=== PATIENT | female | born 1975 | race Caucasian/White ===

== ENCOUNTER → 2022-09-20 10:25 | Outpatient (BNVA) | payer BC, SELFPAY | PROVIDERS: Visit Provider Family Medicine | DX: I10 Essential (primary) hypertension (principal) | CPT/HCPCS: 80053; 80061; 83036; 84443; 85025; 86803; 87806 ==

== ENCOUNTER 2022-10-09 14:49 | Outpatient (CLI) | payer BC, MEDICAID, SELFPAY ==
--- NOTE | 2022-10-09 14:54 | CTR_ITS ---
PROCEDURE INFORMATION: Exam: CTA Abdominal Aorta and Bilateral Lower Extremities (Run-off) With Contrast Exam date and time: 10/09/2022 3:12 PM Age: 47 years old Clinical indication: Condition or disease; Peripheral vascular disease; Prior surgery; Surgery type: Big toe RT, tubal, heart stent; Patient HX: Pvd, non healing cat bite on big toe was amputated, still wound on medial mid foot. ; Additional info: Pvd, non healing diabetic foot ulcer, please draw bun and creatinine before cta TECHNIQUE: Imaging protocol: Computed tomographic angiography of the of the abdominal aorta, pelvis and bilateral lower extremities with contrast. 3D rendering (Not supervised by radiologist): MIP and/or 3D reconstructed images were created by the technologist. Radiation optimization: All CT scans at this facility use at least one of these dose optimization techniques: automated exposure control; mA and/or kV adjustment per patient size (includes targeted exams where dose is matched to clinical indication); or iterative reconstruction. Contrast material: OMNI 350; Contrast volume: 95 ml; Contrast route: INTRAVENOUS (IV); REPORTING DATA: Count of CT and Cardiac NM exams in prior 12 months: This patient has received 0 known CTs and 0 known cardiac nuclear medicine studies in the 12 months prior to the current study. COMPARISON: No relevant prior studies available. RADIATION DOSE METRICS: Total DLP (mGy-cm): 606.17 FINDINGS: Aorta: There is moderate atherosclerotic calcification of the abdominal aorta with mild stenosis of the mid to distal abdominal aorta but no aneurysm. Celiac trunk and mesenteric arteries: There is an accessory right gastric artery branch arising directly from the aorta superior to the celiac origin. Celiac artery and superior mesenteric arteries are widely patent. Renal arteries: There is a main renal artery on each side without stenosis. Each kidney also has an accessory renal artery supplying its lower pole without stenosis. Right iliac arteries: No occlusion or significant stenosis. Right femoral/popliteal arteries: No occlusion or significant stenosis. Right infrapopliteal arteries: On the right side there is three-vessel runoff visualized below the knee. The posterior tibial artery is patent to the foot and supplies foot via the plantar arcade. The right peroneal artery is patent to the level of the mid calf but not beyond. The right anterior tibial artery is small and terminates in the mid calf. The right dorsalis pedis artery is not visualized. Left iliac arteries: No occlusion or significant stenosis. Left femoral/popliteal arteries: No occlusion or significant stenosis. Left infrapopliteal arteries: The left tibial peroneal trunk is proximally occluded. Left anterior tibial artery is occluded in the mid calf. The left foot is supplied via collateral branches which reconstitutes the dorsalis pedis artery. The left peroneal artery is never filled on this examination. There is a thready left posterior tibial artery which is minimally opacified at various points in its length. Lungs: There is some subsegmental atelectasis at left lung baseThere is no focal abnormality within the liver. Liver: No mass. Gallbladder and bile ducts: Unremarkable. No calcified stones. No ductal dilation. Pancreas: The pancreas is normal. Spleen: The spleen is normal. Adrenal glands: The adrenal glands are normal. Kidneys and ureters: There are some areas of cortical scarring lower pole and lower mid right kidney. Tiny calcification mid left kidney may represent small nonobstructing stone . There is no evidence of hydronephrosis. There is no stone along the course of either ureter. Stomach and bowel: There is no evidence of intestinal perforation or obstruction. There is no evidence of colitis/diverticulitis. There is no evidence of intestinal obstruction. Appendix: A normal appendix is identified. Urinary bladder: Unremarkable. No mass. Reproductive: Uterus is enlarged and lobulated containing several fibroids. There are what appear to be 2 corpus luteum cysts in the left ovary measuring 16 17 mm. Intraperitoneal space: There is no evidence of free intraperitoneal fluid. Lymph nodes: There is no evidence of lymphadenopathy. Bones/joints: Bones of the left foot in the distal left tibia are osteoporotic. There has been transmetatarsal amputation of the left great toe. Soft tissues: Unremarkable. CT/CT angio abd aorta runof [id number] IMPRESSION: 1. Atherosclerotic disease as described above mainly distal with extremely poor runoff on the left , mainly via the left anterior tibial artery which is occluded at the level of the mid calf and non filling of the left peroneal and posterior tibial arteries. 2. Essentially Single-vessel runoff on the right via a patent posterior tibial artery.
[2022-10-09 15:24] LABS: Blood Urea Nitrogen 9 mg/dL (6-20); Glomerular Filtration Rate 107.6 mL/min (90-130)
[2022-10-09] MEDS: iohexol 350 mg/mL 500 mL Btl (per mL) IV (15:26)
== END 2022-10-09 14:50 | disposition home or self-care (01) ==
LOC: RAD 14:50
PROVIDERS: PCP Family Medicine; Visit Provider Thoracic Surgery (Cardiothoracic Vascular Surgery)
DX: E11.621 Type 2 diabetes mellitus with foot ulcer (principal); L97.529 Non-pressure chronic ulcer of other part of left foot with unspecified severity; E11.51 Type 2 diabetes mellitus with diabetic peripheral angiopathy without gangrene
CPT/HCPCS: 75635; 82565; 84520; Q9967

== ENCOUNTER 2022-11-22 21:30 | Emergency (ER) | payer BC, MEDICAID, SELFPAY ==
--- NOTE | 2022-11-22 21:32 | ECG_ITS ---
[facility] Test Date: 2022-11-22 Pat Name: Nayana Mera Department: Room: Gender: Female Vp Lab: : [id number] Requested By: Rosibel Mosley Order Number: [id number] Humera MD: Marques Conte M.D. Measurements Intervals [place] Rate: 110 P: 58 VA: 136 QRS: -16 QRSD: 100 T: -45 QT: 342 QTc: 463 Interpretive Statements SINUS TACHYCARDIA LOW QRS VOLTAGE IN PRECORDIAL LEADS [QRS DEFLECTION < 1.0 mV IN CHEST LEADS] INFERIOR MYOCARDIAL INFARCTION , OF INDETERMINATE AGE [40+ ms Q WAVE AND/OR ST/T ABNORMALITY IN II/aVF] No previous ECG available for comparison Electronically Signed On 11-23-2022 11:58:46 CDT by Marques Conte M.D. [email or web address]
--- NOTE | 2022-11-22 21:32 | XRR_ITS ---
PROCEDURE INFORMATION: Exam: XR Chest Exam date and time: 11/22/2022 9:42 PM Age: 47 years old Clinical indication: Pain; Chest pressure; Prior surgery; Surgery date: 6+ months; Surgery type: Stents; Additional info: Cp TECHNIQUE: Imaging protocol: Radiologic exam of the chest. Views: 1 view. COMPARISON: CT angio abd aorta runof [id number] 10/09/2022 3:12 PM FINDINGS: Lungs: There is some focal scarring or subsegmental atelectasis in the left mid lung. Visualized portions of the right lung are clear. Pleural spaces: Unremarkable. No pleural effusion. No pneumothorax. Heart/Mediastinum: Heart is within normal limits of size. Bones/joints: Unremarkable. XR/XR chest 1V portable [id number] IMPRESSION: Minimal subsegmental atelectasis in the left lung.
[2022-11-22 21:33] VITALS: BP 112/69; PULSE 107; RESP 17; TEMP 36.7; O2SAT 92; BMI 29.6
[2022-11-22 21:48] LABS: Basophils # 0.1 10^3/uL (0.0-0.1); Basophils % 0.7 %; Eosinophils # 0.2 10^3/uL (0.0-0.8); Eosinophils % 1.9 %; Hematocrit 47.6 % (37.0-47.0); Lymphocytes # 5.1 10^3/uL (0.8-4.8); Lymphocytes % 46.9 %; Mean Corpuscular HGB Conc 31.5 g/dL (30.0-36.0); Mean Corpuscular Hemoglobin 31.4 pg (28.0-34.0); Mean Corpuscular Volume 99.8 fl (81-99); Mean Platelet Volume 9.8 fL (7.4-10.4); Monocytes # 0.7 10^3/uL (0.2-0.9); Monocytes % 6.6 %; Neutrophils # 4.68 10^3/uL (1.8-7.7); Neutrophils % 43.5 %; Nucleated Red Blood Cells % 0 %; Platelet Count 360 10^3/cmm (130-400); Red Blood Count 4.77 10^6/uL (4.1-5.3); Red Cell Distribution Width 14.4 % (12.1-15.1); White Blood Count 10.8 10^3/uL (4.0-10.0)
[2022-11-22 22:04] LABS: SARS Covid-2 Antigen negative (Negative)
--- NOTE | 2022-11-22 22:05 | ED_ITS ---
HPI - Chest Pain General: Chief Complaint: Chest Pain Stated Complaint: cp Time Seen by Provider: 11/22/22 21:32 Source: patient and EMS Mode of arrival: EMS Limitations: no limitations History of Present Illness: 47-year-old female states been having upper respiratory like illness for the last 2 days states she has had some congestion she felt congested in her chest along with cough take-home COVID is negative states that she became concerned she had some chest pains with this as well. She denies any severe pain she does have a history of coronary disease denies any nausea or diaphoresis. Associated symptoms: Deny abdominal pain, dyspnea, fever(s), nausea or vomiting Review of Systems Const: Reports: body aches; Denies: fever(s) or chills Eyes: Denies: eye discomfort ENMT: Reports: nasal congestion; Denies: throat pain Card: Reports: chest pain Resp: Reports: non-productive cough; Denies: dyspnea GI: Denies: abdominal pain, nausea, vomiting or diarrhea : Denies: dysuria Musc: Denies: neck pain or back pain Skin/Breast: Denies: rash Neuro: Denies: headache(s) PFS ED PFSH: Social History Smoking and tobacco status: current every day smoker cigarettes Second hand smoke exposure: No Smoking risk assessment/counseling performed?: No Alcohol intake: never Desire information about alcohol rehabilitation?: No Counseling given: No Substance/Drug Use: never Desire information about substance/drug rehabilitation?: No Counseling given: No Adopted: No Caregiver/support person: No Lives independently: Yes Housing: House Female Reproductive History: Spontaneous abortions: No Physical Exam Const: COMMON NORMALS: no acute distress, patient oriented x3 and healthy appearing HENMT: COMMON NORMALS: normocephalic and atraumatic HEAD & SCALP: normo cephalic and atraumatic Eye: COMMON NORMALS: conjunctivae normal CONJUNCTIVA: Yes conjunctivae normal Neck/C-Spine: COMMON NORMALS: full ROM and supple Chest: COMMONS NORMALS: normal inspection of the chest and normal palpation of entire chest wall Resp: COMMON NORMALS: normal respiratory effort, No retractions, No use of accessory muscles and clear to auscultation bilaterally AUSCULTATION: clear to auscultation bilaterally Cardio: COMMON NORMALS: regular rhythm and No murmurs present (Cardio) RATE: tachycardic RHYTHM: regular rhythm GI: COMMON NORMALS: Normal to inspection, nondistended, normoactive bowel sounds present, Soft to palpation, non-tender and no masses PALPATION: Yes Soft to palpation Extremity: COMMON NORMALS: normal to inspection and full ROM Neuro: COMMON NORMALS: patient oriented x3, moves all extremities and no focal motor deficits Psych: COMMON NORMALS: mental status grossly normal, Normal thought process present and cooperative THOUGHT PROCESS: Normal thought process present Skin: COMMON NORMALS: no rashes or lesions noted and no wounds GENERAL SKIN EXAM: no rashes or lesions noted Course Vital Signs: Vital signs: Vital Signs Temperature 98.1 F 11/22/22 21:33 Pulse Rate 101 H 11/22/22 22:17 Respiratory Rate 17 11/22/22 22:17 Blood Pressure 108/78 11/22/22 22:17 Pulse Oximetry 96 11/22/22 22:17 Oxygen Delivery Me thod Room Air 11/22/22 21:33 MDM - Chest Pain Medical Decision Making Patient presents here with cough congestion she also had some chest pain for 2 days she has no signs of acute coronary syndrome her troponin here is 6 EKG is normal has possible slight pneumonia on her x-ray we will give her Decadron she is to use inhaler at home we will prescribe her doxycycline she is to follow-up with PCP and return if worsening she understands agrees to plan. Differential Diagnosis Unlikely acute massive pulmonary embolism, acute respiratory failure or acute myocardial infarction Medical Records I reviewed the patient's medical records. Lab Data I reviewed the patient's lab results. 11/22/22 21:39 11/22/22 22:03 Radiology Impressions Chest X-Ray 11/22/22 21:32 IMPRESSION: Minimal subsegmental atelectasis in the left lung. Laboratory Results WBC 10.8 10^3/uL (4.0-10.0) H 11/22/22 21:39 RBC 4.77 10^6/uL (4.1-5.3) 11/22/22 21:39 Hgb 15.0 g/dL (11.5-15.3) 11/22/22 21:39 Hct 47.6 % (37.0-47.0) H 11/22/22 21:39 MCV 99.8 fl (81-99) H 11/22/22 21:39 MCH 31.4 pg (28.0-34.0) 11/22/22 21:39 MCHC 31.5 g/dL (30.0-36.0) 11/22/22 21:39 RDW 14.4 % (12.1-15.1) 11/22/22 21:39 Plt Count 360 10^3/cmm (130-400) 11/22/22 21:39 MPV 9.8 fL (7.4-10.4) 11/22/22 21:39 Neut % (Auto) 43.5 % 11/22/22 21: Lymph % (Auto) 46.9 % 11/22/22 21: Scott % (Auto) 6.6 % 11/22/22 21: Eos % (Auto) 1.9 % 11/22/22 21: Baso % (Auto) 0.7 % 11/22/22 21: Neut # (Auto) 4.68 10^3/uL (1.8-7.7) 11/22/22 21:39 Lymph # (Auto) 5.1 10^3/uL (0.8-4.8) H 11/22/22 21:39 Scott # (Auto) 0.7 10^3/uL (0.2-0.9) 11/22/22 21:39 Eos # (Auto) 0.2 10^3/uL (0.0-0.8) 11/22/22 21:39 Baso # (Auto) 0.1 10^3/uL (0.0-0.1) 11/22/22 21:39 Nucleated RBC % (auto) 0 % 11/22/22 21: Nucleated RBCs # 0.0 /100WBC 11/22/22 21:39 Sodium 139 mmol/L (136-145) 11/22/22 22:03 Potassium 3.8 mmol/L (3.5-5.1) 11/22/22 22:03 Chloride 105 mmol/L (98-107) 11/22/22 22:03 Carbon Dioxide 22 mmol/L (22-29) 11/22/22 22:03 Anion Gap 15.8 (5-19) 11/22/22 22:03 BUN 7 mg/dL (6-20) 11/22/22 22:03 Creatinine 0.4 mg/dL (0.5-0.9) L 11/22/22 22:03 GFR Calculation 171.8 mL/min (90-130) H 11/22/22 22:03 Glucose 157 mg/dL (65-115) H 11/22/22 22:03 Calculated Osmolality 289 mOsm/kg (285-295) 11/22/22 22:03 Calcium 8.7 mg/dL (8.5-10.5) 11/22/22 22:03 Total Bilirubin 0.2 mg/dL (0.15-1.2) 11/22/22 22:03 AST 13 U/L (0-32) 11/22/22 22:03 ALT 15 U/L (0-33) 11/22/22 22:03 Alkaline Phosphatase 78 U/L (35-105) 11/22/22 22:03 Troponin T Baseline 7 ng/L (0-10) 11/22/22 22:03 Total Protein 6.6 g/dL (6.6-8.7) 11/22/22 22:03 Albumin 4.1 g/dL (3.5-5.2) 11/22/22 22:03 Globulin 2.5 g/dL (1.3-4.6) 11/22/22 22:03 SARS-CoV-2 Ag (Rapid) negative (Negative) 11/22/22 21:39 EKG Data EKG 1: I personally reviewed and interpreted this EKG as follows: EKG interpretation date: 11/22/22 EKG interpretation time: 21:35 Interpretation: sinus tach hr [address] or t wave abnormalities qrs 100 qtc 407 Discharge Plan Discharge Patient Disposition: Home Clinical Impression: Bronchitis Condition: Stable Prescriptions: New doxycycline hyclate 100 mg tablet 100 mg PO BID 7 Days Qty: 14 0RF No Action cetirizine 10 mg tablet 10 mg PO DAILY PRN metformin 500 mg tablet extended release 24hr 1,000 mg PO BID Rx Instructions: Take 2 tablets by mouth twice daily aspirin 81 mg tablet,delayed release (DR/EC) 81 mg PO DAILY clopidogrel 75 mg tablet 75 mg PO DAILY Qty: 30 11RF albuterol sulfate 90 mcg/actuation HFA aerosol inhaler 1 inh inhalation QID PRN (Reason: shortness of breath or wheezing) Qty: 8.5 5RF varenicline 0.5 mg (11)- 1 mg (42) tablets,dose pack See Rx Instructions PO PER PKG DIR Qty: 53 0RF Rx Instructions: PO PER PKG DIR (DME) compressor, for nebulizer Device See Rx Instructions .Route Qty: 1 0RF Rx Instructions: As directed gabapentin 300 mg capsule 300 mg PO DAILY Qty: 90 3RF atorvastatin 40 mg tablet 40 mg PO DAILY Qty: 90 3RF insulin glargine [Lantus Solostar U-100 Insulin] 100 unit/mL (3 mL) insulin pen 35 unit SUBCUT QAM Qty: 15 5RF lisinopril 2.5 mg tablet 2.5 mg PO DAILY Qty: 90 3RF metoprolol tartrate 25 mg tablet 25 mg PO BID Qty: 180 2RF hydrocodone-acetaminophen 5-325 mg tablet 1 tab PO BID PRN sodium chloride 0.9 % solution 1 irrig irrigation DAILY Qty: 500 1RF (DME) Dexcom G6 Sensor Device See Rx Instructions .Route Qty: 3 2RF Rx Instructions: As directed (DME) Dexcom G6 Transmitter Device See Rx Instructions .Route Qty: 3 2RF Rx Instructions: As directed (DME) Custom Molded Inserts with Toe Filler to the Left See Rx Instructions .Route .MEDSUPPLY Qty: 1 0RF Rx Instructions: As directed J P & O insulin aspart U-100 100 unit/mL (3 mL) insulin pen 5 unit SUBCUT TID Qty: 15 3RF Rx Instructions: 5 units with each meal plus Sliding Scale - Max daily dose 45 units. fluticasone propionate [Flonase Allergy Relief] 50 mcg/actuation spray,suspension 1 spray intranasal BID Qty: 16 5RF Rx Instructions: administer into each nostril (DME) diabetic supplies, miscellan. Misc See Rx Instructions .ROUTE .MEDSUPPLY Qty: 100 11RF Rx Instructions: Pen needles, tips, syringes, other supplies for insulin administration. 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
[2022-11-22 22:17] VITALS: BP 108/78; PULSE 101; RESP 17; O2SAT 96
[2022-11-22] MEDS: LORazepam 2 mg/mL INJ 1 mL 1 MG IVP (22:18)
[2022-11-22 22:29] LABS: Troponin(5th) Baseline 7 ng/L (0-10)
[2022-11-22 22:31] LABS: Alanine Aminotransferase 15 U/L (0-33); Albumin Level 4.1 g/dL (3.5-5.2); Alkaline Phosphatase 78 U/L (35-105); Anion Gap 15.8 (5-19); Aspartate Amino Transferase 13 U/L (0-32); Blood Urea Nitrogen 7 mg/dL (6-20); Calcium 8.7 mg/dL (8.5-10.5); Carbon Dioxide 22 mmol/L (22-29); Chloride 105 mmol/L (98-107); Globulin 2.5 g/dL (1.3-4.6); Glomerular Filtration Rate 171.8 mL/min (90-130); Glucose 157 mg/dL (65-115); Osmolality Calculated 289 mOsm/kg (285-295); Potassium 3.8 mmol/L (3.5-5.1); Sodium 139 mmol/L (136-145); Total Bilirubin 0.2 mg/dL (0.15-1.2); Total Protein 6.6 g/dL (6.6-8.7)
[2022-11-22 23:00] VITALS: BP 112/68; PULSE 105; RESP 20; O2SAT 96
[2022-11-22] MEDS: doxycycline 100 mg Tablet PO (23:00)
[2022-11-22] MEDS: dexamethasone 10 mg/mL INJ IVP (23:01)
== END 2022-11-22 23:10 | disposition home or self-care (01) ==
PROVIDERS: Emergency Provider Emergency Medicine; PCP Family Medicine
DX: J40 Bronchitis, not specified as acute or chronic (principal); Z79.84 Long term (current) use of oral hypoglycemic drugs; Z79.82 Long term (current) use of aspirin; Z79.02 Long term (current) use of antithrombotics/antiplatelets; Z79.4 Long term (current) use of insulin; Z20.822 Contact with and (suspected) exposure to COVID-19; F17.210 Nicotine dependence, cigarettes, uncomplicated
CPT/HCPCS: 36415; 71045; 80053; 84484; 85025; 87426; 93005; 96374; 96375; 99285; J1100; J2060

== ENCOUNTER 2022-11-26 08:44 | Outpatient (CLI) | payer BC, MEDICAID, SELFPAY ==
--- NOTE | 2022-11-26 | USCV_ITS ---
Nayana Mera Age: 47 Gender: F : 1975 Exam Date: 11/26/2022 09:27 Ordering Phys: Cecilia Key MD ([email or web address]) Technologist: Christopher Benavidez Exam Location: [facility] – [place] Indication: Recent MT BP: 94 / 62 HR: 74 Rhythm: Sinus Technical Quality: Adequate MEASUREMENTS (Male / Female) Normal Values 2D ECHO LVOT Diameter 2.2 cm LV Ejection Fraction MOD 2C 34.3 % LV Ejection Fraction 2C AL 32.3 % LA Diameter 3.1 cm LA Width 3.4 cm LA Height 4.4 cm RA Width 3.0 cm RA Height 3.8 cm Aorta at Sinotubular Diameter 1.8 cm IVC Diameter 1.8 cm M-MODE Aortic Annulus Diameter 2.6 cm LA Ao Ratio MM 1.1 MV E Point Septal Separation 1.3 cm DOPPLER AV Peak Velocity 111.0 cm/s LVOT Peak Velocity 61.0 cm/s AV Area Cont Eq vti 1.9 cm squared AV Area Cont Eq pk 2.0 cm squared MV Peak Velocity 87.0 cm/s MV Area PHT 3.5 cm squared Mitral E to A Ratio 1.0 MV E' Velocity 35.0 cm/s Mitral E to MV E' Ratio 7.0 Mitral E to LV E' Lateral Ratio 5.5 Mitral E to LV E' Septal Ratio 9.6 TR Peak Velocity 182.0 cm/s TR Peak Gradient 13.2 mmHg TR Mean Velocity 154.6 cm/s TR Mean Gradient 9.5 mmHg TR Velocity Time Integral 41.9 cm Right Atrial Pressure 3.0 mmHg Pulmonary Artery Systolic Pressu 16.2 mmHg PV Peak Velocity 98.0 cm/s RV Acceleration Time 0.1 s RV Ejection Time 0.2 s RV AcT/ET 0.5 FINDINGS Left Ventricle Moderate diffuse hypokinesia of the septum. Almost akinetic basal and mid inferior wall segment. LV ejection fraction around 34%.Grade I/IV diastolic dysfunction (abnormal relaxation filling pattern), normal to mildly elevated filling pressures. Right Ventricle The right ventricle is normal in size and function. Right Atrium The right atrium is normal in size. Left Atrium Mildly increased left atrial size. Mitral Valve Thickened mitral valve. Mild mitral valve regurgitation. Aortic Valve Thickened aortic valve. Tricuspid Valve Trace tricuspid valve regurgitation. Estimated pulmonary artery peak systolic pressure within normal limits Pulmonic Valve No gross abnormalities noted Pericardium Normal pericardium without effusion. Aorta Normal ascending aorta dimension. IVC Normal inferior vena cava. CONCLUSIONS Moderate diffuse hypokinesia of the septum. Almost akinetic basal and mid inferior wall segment. LV ejection fraction around 34%.Grade I/IV diastolic dysfunction (abnormal relaxation filling pattern), normal to mildly elevated filling pressures. Thickened mitral valve. Mild mitral valve regurgitation. Mildly increased left atrial size. Trace tricuspid valve regurgitation. Estimated pulmonary artery peak systolic pressure within normal limits Thickened aortic valve. There is no pericardial effusion. There are no intracardiac masses. No similar previous studies are available for comparison Dr Cecilia eKy MD [facility] (Electronically Signed) Final Date: 27 Nov 2022 08:58 S
== END 2022-11-26 08:45 | disposition home or self-care (01) ==
LOC: RAD 08:47
PROVIDERS: PCP Family Medicine; Visit Provider Internal Medicine Cardiovascular Disease
DX: I25.2 Old myocardial infarction (principal); I05.9 Rheumatic mitral valve disease, unspecified; I07.1 Rheumatic tricuspid insufficiency; I35.8 Other nonrheumatic aortic valve disorders
CPT/HCPCS: 93306

== ENCOUNTER 2023-01-14 02:29 | Emergency (ER) | payer BC, MEDICAID, SELFPAY ==
[2023-01-14 02:31] VITALS: BP 124/81; PULSE 93; RESP 18; TEMP 36.9; O2SAT 99; BMI 28.7
--- NOTE | 2023-01-14 02:35 | ED_ITS ---
HPI - Skin/Abscess/Foreign Bdy General: Chief complaint: Allergic Reaction Stated complaint: bite of some kind Time Seen by Provider: 01/14/23 02:30 History of Present Illness: Ms. Mera is a 47-year-old lady presenting to the emergency department for possible allergic reaction. She notes being at her baseline health. She did try a new perfume and had slight itching after that however that was earlier today. Without known provoking event she has developed left upper arm redness with itching. Moderate to severe in intensity. Denies signs of systemic illness/anaphylaxis. No other specific changes in health, exacerbating, or alleviating factors identified. Onset (ago): minute(s) Location: LUE Severity: moderate Quality: burning and pruritic Exacerbating factors: none Context: other Associated symptoms: Reports no associated symptoms Review of Systems General: Reports: 10 or more systems reviewed and unremarkable except in HPI and below PFSH ED PFSH: Medical History (Updated 01/14/23 @ 03:47 by Flex Bruno MD) COPD (chronic obstructive pulmonary disease) Diabetes, polyneuropathy Nicotine dependence, cigarettes, with unspecified nicotine-induced disorders PAD (peripheral artery disease) Systolic CHF with reduced left ventricular function, NYHA class 2 Social History Smoking and tobacco status: current every day smoker cigarettes Second hand smoke exposure: No Smoking risk assessment/counseling performed?: No Alcohol intake: never Desire information about alcohol rehabilitation?: No Counseling given: No Substance/Drug Use: never Desire information about substance/drug rehabilitation?: No Counseling given: No Adopted: No Caregiver/support person: No Lives independently: Yes Housing: House Female Reproductive History: Spontaneous abortions: No Physical Exam Const: COMMON NORMALS: alert GENERAL APPEARANCE: cooperative and well developed HENMT: COMMON NORMALS: normocephalic and atraumatic HEAD & SCALP: normocephalic and atraumatic THROAT: posterior oropharynx normal Eye: COMMON NORMALS: conjunctivae normal CONJUNCTIVA: Yes conjunctivae normal SCLERA: sclerae normal Neck/C-Spine: COMMON NORMALS: supple GENERAL: Yes trachea midline Resp: COMMON NORMALS: normal respiratory effort and clear to auscultation bilaterally EFFORT & INSPECTION: Yes able to speak in complete sentences AUSCULTATION: clear to auscultation bilaterally Cardio: COMMON NORMALS: regular rate and regular rhythm RATE: regular rate RHYTHM: regular rhythm GI: COMMON NORMALS: Soft to palpation PALPATION: Yes Soft to palpation and No Tenderness to palpation present (GI) Extremity: NARRATIVE EXTREMITY EXAM: Left upper extremity with erythema and pruritus without open wound on the distal anterior upper arm region with spread across the antecubital region. Distal CMS intact. GENERAL: Yes normal exam except as noted and No edema Neuro: COMMON NORMALS: moves all extremities SENSORIUM/ORIENTATION: Yes alert and No Orientation impaired Psych: COMMON NORMALS: mental status grossly normal and Normal thought process present THOUGHT PROCESS: Normal thought process present Course Vital Signs: Vital signs: Vital Signs Temperature 98.4 F 01/14/23 02:31 Pulse Rate 92 01/14/23 04:10 Respiratory Rate 16 01/14/23 04:10 Blood Pressure 99/61 01/14/23 04:10 Pulse Oximetry 97 01/14/23 04:10 MDM - Skin/Abscess/Foreign Bdy Medicial Decision Making 47-year-old lady presenting with arm pruritus and erythema concerning for localized allergic reaction. Denies insect bite and no clear puncture wound or insect bite is apparent on exam. Distal CMS intact. Patient is nontoxic. No evidence of anaphylaxis or rapidly progressing reaction. Patient treated with Benadryl, Pepcid, Decadron. IV fluids given. On reassessment patient has improvement. She does still have tenderness and warmth feels appears to be improved and has not developed additional symptoms. Given somewhat atypical distribution/unknown contact [id number] ultrasound was performed, soft tissue swelling without evidence of infectious etiology. No abscess. The results of ED evaluation were discussed with the patient including prescriptions and/or symptomatic cares (if applicable) including appropriate and responsible use, followup plan, and return precautions. The patient verbalized understanding and felt safe for discharge. Medical Records I reviewed the patient's medical records. Lab Data I reviewed the patient's lab results. Discharge Plan Discharge Patient Disposition: Home Clinical Impression: Allergic reaction Condition: Stable Prescriptions: New Pepcid 40 mg tablet 40 mg PO BID 5 Days Qty: 10 0RF prednisone 50 mg tablet 50 mg PO DAILY 5 Days Qty: 5 0RF Benadryl 25 mg capsule 25 mg PO Q6H PRN (Reason: allergic reaction) Qty: 30 0RF No Action cetirizine 10 mg tablet 10 mg PO DAILY PRN aspirin 81 mg tablet,delayed release (DR/EC) 81 mg PO DAILY clopidogrel 75 mg tablet 75 mg PO DAILY Qty: 30 11RF albuterol sulfate 90 mcg/actuation HFA aerosol inhaler 1 inh inhalation QID PRN (Reason: shortness of breath or wheezing) Qty: 8.5 5RF (DME) compressor, for nebulizer Device See Rx Instructions .Route Qty: 1 0RF Rx Instructions: As directed atorvastatin 40 mg tablet 40 mg PO DAILY Qty: 90 3RF insulin glargine [Lantus Solostar U-100 Insulin] 100 unit/mL (3 mL) insulin pen 35 unit SUBCUT QAM Qty: 15 5RF metoprolol tartrate 25 mg tablet 25 mg PO BID Qty: 180 2RF (DME) blood pressure test kit-medium Kit See Rx Instructions .Route Qty: 1 0RF Rx Instructions: As directed bupropion HCl [Wellbutrin SR] 150 mg tablet sustained-release 12 hr 150 mg PO DAILY Qty: 30 2RF fluconazole [Diflucan] 150 mg tablet 150 mg PO Q3D 9 Days Qty: 3 0RF insulin aspart U-100 100 unit/mL (3 mL) insulin pen 5 unit SUBCUT TID PRN Rx Instructions: 5 units with each meal plus Sliding Scale - Max daily dose 45 units. sacubitril-valsartan 49-51 mg tablet 1 tab PO BID 14 Days Qty: 28 0RF Rx Instructions: start on 6/1 PM (DME) Dexcom G6 Transmitter Device See Rx Instructions .Route Qty: 3 2RF Rx Instructions: As directed (DME) Custom Molded Inserts with Toe Filler to the Left See Rx Instructions .Route .MEDSUPPLY Qty: 1 0RF Rx Instructions: As directed J P & O fluticasone propionate [Flonase Allergy Relief] 50 mcg/actuation spray,suspension 1 spray intranasal BID Qty: 16 5RF Rx Instructions: administer into each nostril (DME) diabetic supplies, miscellan. Misc See Rx Instructions .ROUTE .MEDSUPPLY Qty: 100 11RF Rx Instructions: Pen needles, tips, syringes, other supplies for insulin administration. (DME) Dexcom G6 Sensor Device See Rx Instructions .ROUTE .COMPLEX Qty: 3 0RF Dose Instruction: USE DIRECTED Rx Instructions: USE DIRECTED Discharge Orders: Discharge ED (Routine); Ordered 01/14/23 Ordered By: Flex Bruno Referrals: To Yoon, [Primary Care Provider] - Discharge Diet: Usual diet Discharge Activity: Resume usual activity Patient Instructions: General Allergic Reaction (ED), Opioid Safety, Pain Management Activity Restrictions/Additional Instructions: Thank you for visiting the emergency department. You were seen and evaluated for likely allergic reaction. We are pleased that you had improvement in the emergency department. We will plan to continue to treat in the outpatient setting. I will prescribe steroids and Pepcid which you should take scheduled as prescribed, and you can use Benadryl as needed for additional symptom control. You may use [id number] medications such as acetaminophen and ibuprofen for pain however please do not exceed the daily recommended dosage as listed on the packaging and please keep in mind that many namebrand medications contain the same active ingredients. Please avoid these medications if previously instructed to do so by another physician due to other underlying medical condition. Please follow-up with a primary care provider. Return for worsening symptoms, any mouth or facial swelling, throat tightness, shortness of breath, or anything else that you are concerned about and feel needs emergency department evaluation. 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
[2023-01-14] MEDS: sodium chloride 0.9% 1,000 ML 999 ML IV (02:50)
[2023-01-14] MEDS: diphenhydrAMINE 50 mg/mL SDV 1mL IVP (02:51)
[2023-01-14] MEDS: dexamethasone 10 mg/mL INJ IVP (02:53)
[2023-01-14] MEDS: famotidine 20 mg/2 mL INJ 40 MG IVP (02:53)
[2023-01-14] MEDS: ketorolac 30 mg/mL INJ 15 MG IVP (04:04)
[2023-01-14] MEDS: acetaminophen 325 mg Tablet 650 MG PO (04:05)
[2023-01-14 04:10] VITALS: BP 99/61; PULSE 92; RESP 16; O2SAT 97
== END 2023-01-14 04:09 | disposition home or self-care (01) ==
PROVIDERS: Emergency Provider Emergency Medicine; PCP Family Medicine
DX: T78.40XA Allergy, unspecified, initial encounter (principal); X58.XXXA Exposure to other specified factors, initial encounter
CPT/HCPCS: 96361; 96374; 96375; 99284; J1100; J1200; J1885; J3490; J7030

== ENCOUNTER 2023-01-16 15:02 | Outpatient (CLI) | payer BC, MEDICAID, SELFPAY ==
[2023-01-16 15:55] LABS: Anion Gap 14.6 (5-19); Blood Urea Nitrogen 10 mg/dL (6-20); Carbon Dioxide 24 mmol/L (22-29); Chloride 101 mmol/L (98-107); Glomerular Filtration Rate 171.8 mL/min (90-130); Glucose 179 mg/dL (65-115); NT Pro B Type Natriuretic Pept 712 pg/mL (0-125); Osmolality Calculated 286 mOsm/kg (285-295); Potassium 3.6 mmol/L (3.5-5.1); Sodium 136 mmol/L (136-145)
== END 2023-01-16 15:03 | disposition home or self-care (01) ==
LOC: LAB 15:05
PROVIDERS: PCP Family Medicine; Visit Provider Nurse Practitioner Family
DX: I25.5 Ischemic cardiomyopathy (principal); I50.20 Unspecified systolic (congestive) heart failure; I73.9 Peripheral vascular disease, unspecified
CPT/HCPCS: 36415; 80048; 83880

== ENCOUNTER → 2023-02-07 15:49 | Outpatient (BNVA) | payer BC, MEDICAID, SELFPAY | PROVIDERS: PCP Family Medicine; Visit Provider Internal Medicine Cardiovascular Disease | DX: R06.02 Shortness of breath (principal) | CPT/HCPCS: 36415; 80048; 83880 ==

== ENCOUNTER 2023-02-19 14:13 | Outpatient (CLI) | payer BC, MEDICAID, SELFPAY ==
--- NOTE | 2023-02-19 14:30 | USCV_ITS ---
Nayana Mera Age: 47 Gender: F : 1975 Exam Date: 02/19/2023 14:43 Ordering Phys: Cecilia Key MD ([email or web address]) Technologist: Christopher Benavidez Exam Location: [facility] – [place] Indication: cardiomyopathy BP: 116 / 84 HR: 98 Rhythm: Sinus Technical Quality: Adequate MEASUREMENTS (Male / Female) Normal Values 2D ECHO LVOT Diameter 2.0 cm LV Ejection Fraction MOD 2C 30.2 % LV Ejection Fraction 2C AL 31.0 % LA Diameter 3.2 cm LA Width 3.2 cm LA Height 4.1 cm RA Width 2.6 cm RA Height 3.1 cm Aorta at Sinotubular Diameter 2.0 cm IVC Diameter 1.3 cm M-MODE Aortic Annulus Diameter 2.7 cm LA Ao Ratio MM 1.1 MV E Point Septal Separation 1.5 cm DOPPLER AV Peak Velocity 125.7 cm/s LVOT Peak Velocity 76.0 cm/s AV Area Cont Eq vti 1.6 cm squared AV Area Cont Eq pk 1.9 cm squared MV Peak Velocity 109.0 cm/s MV Area PHT 5.9 cm squared Mitral E to A Ratio 0.7 MV E' Velocity 35.0 cm/s Mitral E to MV E' Ratio 7.9 Mitral E to LV E' Lateral Ratio 5.9 Mitral E to LV E' Septal Ratio 12.0 TR Peak Velocity 199.3 cm/s TR Peak Gradient 15.9 mmHg TR Mean Velocity 160.6 cm/s TR Mean Gradient 10.6 mmHg TR Velocity Time Integral 44.8 cm Right Atrial Pressure 3.0 mmHg Pulmonary Artery Systolic Pressu 18.9 mmHg PV Peak Velocity 95.7 cm/s RV Acceleration Time 0.1 s RV Ejection Time 0.2 s RV AcT/ET 0.4 FINDINGS Left Ventricle Severe diffuse hypokinesis the inferior wall and the septum. Mild diffuse hypokinesia of the apex. Mildly dilated LV cavity. There LV ejection fraction is around 37% by MOD. an apical density possibly extracardiac.Grade I/IV diastolic dysfunction (abnormal relaxation filling pattern), normal to mildly elevated filling pressures. Right Ventricle Normal size and ejection fraction. Right Atrium The right atrium is normal in size. Left Atrium The left atrium is normal in size. Mitral Valve Minimally thickened mitral valve with trace of mitral regurgitation. Aortic Valve Minimally thickened Tricuspid Valve No gross abnormalities noted Pulmonic Valve No gross abnormalities noted Pericardium Normal pericardium without effusion. Aorta Normal ascending aorta dimension. IVC The inferior vena cava appears normal. CONCLUSIONS Study from 11/26/2022, ejection fraction of 34% Multiple wall motion of normalities with diminished ejection fraction 37%. Mildly dilated LV cavity. There is an apical density possibly extracardiac. Type I diastolic dysfunction. Minimally thickened mitral valve with trace of mitral regurgitation. Minimally thickened aortic valve There is no pericardial effusion. Consider echo contrast to rule out any apical thrombus Compared to the study from 11/26/2022, there is some improvement with LV ejection fraction Dr Cecilia Key MD [facility] (Electronically Signed) Final Date: 20 February 2023 07:53 S
== END 2023-02-19 14:14 | disposition home or self-care (01) ==
PROVIDERS: PCP Family Medicine; Visit Provider Internal Medicine Cardiovascular Disease
DX: I34.0 Nonrheumatic mitral (valve) insufficiency (principal); R06.09 Other forms of dyspnea
CPT/HCPCS: 93306

== ENCOUNTER 2023-02-20 10:11 | Outpatient (CLI) | payer BC, MEDICAID, SELFPAY ==
--- NOTE | 2023-02-20 | USCV_ITS ---
Nayana Mera Age: 47 Gender: F : 1975 Exam Date: 02/20/2023 10:28 Ordering Phys: Cecilia Key MD ([email or web address]) Technologist: Christopher Benavidez Exam Location: [facility] – [place] Indication: LV FUNCTION BP: 116 / 84 HR: 83 Rhythm: Sinus Technical Quality: Adequate MEASUREMENTS (Male / Female) Normal Values 2D ECHO LVOT Diameter 2.1 cm LV Ejection Fraction MOD 2C 33.7 % LV Ejection Fraction 2C AL 34.2 % LA Diameter 3.1 cm LA Width 3.0 cm LA Height 4.3 cm RA Width 3.1 cm RA Height 3.6 cm Aorta at Sinotubular Diameter 2.3 cm IVC Diameter 1.1 cm M-MODE Aortic Annulus Diameter 2.4 cm LA Ao Ratio MM 1.3 MV E Point Septal Separation 1.4 cm DOPPLER Right Atrial Pressure 3.0 mmHg FINDINGS Left Ventricle (Echo contrast - Optison was used to delineate the endocardium and to estimate the LV ejection fraction) diffuse hypokinesia of the left ventricle was noted. There was no filling defect in the apex multiple wall motion abnormalities. LV ejection fraction 36.1% Right Ventricle Right Atrium Left Atrium Mitral Valve Aortic Valve Tricuspid Valve Pulmonic Valve Pericardium Aorta IVC CONCLUSIONS 1. No evidence of LV apical thrombus. 2. Multiple wall motion abnormalities 3. LV ejection fraction with the contrast echo was 36.1% 4. Mildly dilated LV cavity Dr Cecilia Key MD [facility] (Electronically Signed) Final Date: 20 February 2023 16:56 S
[2023-02-20] MEDS: perflutren protein-a microsphr 0.22 mg/mL SDV 3 mL IV (11:14)
== END 2023-02-20 10:12 | disposition home or self-care (01) ==
LOC: RAD 10:12
PROVIDERS: PCP Family Medicine; Visit Provider Nurse Practitioner Family
DX: I51.7 Cardiomegaly (principal); R93.1 Abnormal findings on diagnostic imaging of heart and coronary circulation
CPT/HCPCS: 93308; C8924; Q9956

== ENCOUNTER → 2023-02-26 10:16 | Outpatient (BNVA) | payer BC, MEDICAID, SELFPAY | PROVIDERS: PCP Family Medicine; Visit Provider Family Medicine | DX: E11.9 Type 2 diabetes mellitus without complications (principal); Z79.4 Long term (current) use of insulin | CPT/HCPCS: 83036 ==

== ENCOUNTER 2023-03-07 23:10 | Emergency (ER) | payer BC, MEDICAID, SELFPAY ==
[2023-03-07 23:20] VITALS: BP 137/90; PULSE 106; RESP 18; TEMP 36.9; O2SAT 98; BMI 30.1
--- NOTE | 2023-03-07 23:25 | ED_ITS ---
HPI - Recheck/Abnormal Lab/Rx General: Chief Complaint: Recheck/Abnormal Lab/Rx Stated Complaint: high bp / bs Time Seen by Provider: 03/07/23 23:25 History of Present Illness: 47-year-old female comes in today for concerns of elevated blood pressure. Patient's home monitor noted a blood pressure of 240/80. Patient was concerned and came into the ER. Patient was also concerned about her blood glucose running in the 300s. Patient was wanting to know what she could do to help l ower her sugars because she is having a hard time managing it. Patient takes 35 units of basal insulin daily at 35 units. Patient then is to follow a sliding scale 3-4 times a day. Patient does admit that she does not use her sliding scale that often. Review of Systems General: Reports: 10 or more systems reviewed and unremarkable except in HPI and below Card: Reports: other (High blood pressure) Endo: Reports: other (High blood sugar) [facility] ED PFSH: Medical History COPD (chronic obstructive pulmonary disease) Diabetes, polyneuropathy Nicotine dependence, cigarettes, with unspecified nicotine-induced disorders PAD (peripheral artery disease) Systolic CHF with reduced left ventricular function, NYHA class 2 Social History (Updated 02/26/23 @ 09:37 by Mary Funes LPN) Smoking and tobacco status: current every day smoker cigarettes Packs smoked per day: 1 Second hand smoke exposure: No Smoking risk assessment/counseling performed?: No Alcohol intake: never Desire information about alcohol rehabilitation?: No Counseling given: No Substance/Drug Use: never Desire information about substance/drug rehabilitation?: No Counseling given: No Adopted: No Caregiver/support person: No Lives independently: Yes Housing: House Female Reproductive History: Spontaneous abortions: No Physical Exam Const: COMMON NORMALS: alert HENMT: COMMON NORMALS: normocephalic HEAD & SCALP: normocephalic Neck/C-Spine: COMMON NORMALS: full ROM Resp: COMMON NORMALS: normal respiratory effort and clear to auscultation bilaterally AUSCULTATION: clear to auscultation bilaterally Cardio: COMMON NORMALS: regular rate and regular rhythm RATE: regular rate RHYTHM: regular rhythm Extremity: COMMON NORMALS: normal to inspection and full ROM Neuro: SENSORIUM/ORIENTATION: Yes alert Skin: COMMON NORMALS: turgor normal GENERAL SKIN EXAM: turgor normal Course Vital Signs: Vital signs: Vital Signs Temperature 98.4 F 03/07/23 23:20 Pulse Rate 106 H 03/07/23 23:20 Respiratory Rate 18 03/07/23 23:20 Blood Pressure 137/90 03/07/23 23:20 Pulse Oximetry 98 03/07/23 23:20 MDM - Recheck/Abnormal Lab/Rx Medical Decision Making Patient came in due to abnormal blood pressure reading at home. She reported a blood pressure reading of 240/80. On exam patient's blood pressure was 130/90. Respirations were even lungs are clear to auscultation abdomen soft nontender. No edema is noted in the extremities. Patient was also concerned about her blood glucose which runs in the 3-4 100s at times and was wanting to know how she could get better results. Patient reports that she eats very little sugar and does not eat very much at all routinely. Patient also admits that she only uses her sliding scale insulin occasionally because she forgets. Patient does take her routine basal insulin approximately 35 units daily. Differential diagnosis includes uncontrolled diabetes mellitus, hypertension, hypertensive emergency. No signs of severe illness is noted. Reviewed exam with patient and recommended following sliding scale as directed by primary care this often is 3- 4 times a day dosing. Patient was also recommended to exercise and eat a healthy diet. Reassured patient's blood pressure reading was most likely a fault in her machine at home and recommended follow-up with primary care for further evaluation and treatment. No signs of severe illness was noted and patient was stable and discharged to home. Lab Data Laboratory Results POC Glucose 405 mg/dL (70-110) H 03/07/23 23:36 Discharge Plan Discharge Patient Disposition: Home Clinical Impression: Encounter for examination of blood pressure with abnormal findings, Essential hypertension Diabetes mellitus type 2, uncontrolled Qualifiers: Glycemic state: with hyperglycemia Qualified Code(s): E11.65 - Type 2 diabetes mellitus with hyperglycemia Condition: Stable Prescriptions: No Action cetirizine 10 mg tablet 10 mg PO DAILY PRN aspirin 81 mg tablet,delayed release (DR/EC) 81 mg PO DAILY clopidogrel 75 mg tablet 75 mg PO DAILY Qty: 30 11RF atorvastatin 40 mg tablet 40 mg PO DAILY Qty: 90 3RF insulin glargine [Lantus Solostar U-100 Insulin] 100 unit/mL (3 mL) insulin pen 35 unit SUBCUT QAM Qty: 15 5RF metoprolol tartrate 25 mg tablet 25 mg PO BID Qty: 180 2RF bupropion HCl [Wellbutrin SR] 150 mg tablet sustained-release 12 hr 150 mg PO DAILY Qty: 30 2RF insulin aspart U-100 100 unit/mL (3 mL) insulin pen 5 unit SUBCUT TID PRN Rx Instructions: 5 units with each meal plus Sliding Scale - Max daily dose 45 units. (DME) Dexcom G6 Transmitter Device See Rx Instructions .Route Qty: 3 2RF Rx Instructions: As directed (DME) Dexcom G6 Sensor Device See Rx Instructions .ROUTE .COMPLEX Qty: 3 0RF Dose Instruction: USE DIRECTED Rx Instructions: USE DIRECTED (DME) Dexcom G6 Piping Blocker Misc See Rx Instructions .Route Qty: 1 0RF Rx Instructions: As directed albuterol sulfate [Ventolin HFA] 90 mcg/actuation HFA aerosol inhaler 1 inh inhalation QID PRN (Reason: shortness of breath or wheezing) Qty: 8.5 5RF fluticasone propionate [Flonase Allergy Relief] 50 mcg/actuation spray,suspension 1 spray intranasal BID Qty: 16 5RF Rx Instructions: administer into each nostril sacubitril-valsartan 97-103 mg tablet 1 tab PO BID Qty: 180 3RF Benadryl 25 mg capsule 25 mg PO Q6H PRN (Reason: allergic reaction) Qty: 30 0RF Discharge Orders: Discharge ED (Routine); Ordered 03/07/23 Ordered By: Donis Tellez Referrals: To Yoon DO [Primary Care Provider] - Discharge Diet: Usual diet Discharge Activity: Increase activity as tolerated Patient Instructions: Diabetes and Nutrition (ED) Activity Restrictions/Additional Instructions: Continue with routine medications as directed. Use sliding scale insulin as needed for elevated blood sugar. Check blood sugar 3-4 times a day and follow sliding scale. Follow-up with primary care for further evaluation and treatment and possible adjustment of long-acting insulin. Return to ER for new concerns. Coding Level of Care Code ED St[employer] Machine for Tyron Sheffield
[2023-03-07 23:39] LABS: Glucose Point of Care 405 mg/dL (70-110)
[2023-03-07] MEDS: insulin lispro 100 unit/1 mL 18 UNIT SUBCUT (23:56)
[2023-03-08 00:20] VITALS: BP 121/80; RESP 16
== END 2023-03-08 00:21 | disposition home or self-care (01) ==
PROVIDERS: Emergency Provider Nurse Practitioner Family; PCP Family Medicine
DX: E11.65 Type 2 diabetes mellitus with hyperglycemia (principal); R03.0 Elevated blood-pressure reading, without diagnosis of hypertension; Z79.4 Long term (current) use of insulin
CPT/HCPCS: 36416; 82962; 96372; 99284; J1815

== ENCOUNTER → 2023-05-16 16:31 | Outpatient (BNVA) | payer BC, MEDICAID, SELFPAY | PROVIDERS: PCP Family Medicine; Visit Provider Internal Medicine Cardiovascular Disease | DX: R07.9 Chest pain, unspecified (principal) | CPT/HCPCS: 93005 ==

== ENCOUNTER → 2023-06-13 11:46 | Outpatient (BNVA) | payer BC, MEDICAID, SELFPAY | PROVIDERS: PCP Family Medicine; Visit Provider Nurse Practitioner Family | DX: R39.9 Unspecified symptoms and signs involving the genitourinary system (principal); R10.9 Unspecified abdominal pain | CPT/HCPCS: 81000; 81025; 87491; 87591 ==

== ENCOUNTER → 2023-06-18 14:27 | Outpatient (BNVA) | payer BC, MEDICAID, SELFPAY | PROVIDERS: PCP Family Medicine; Visit Provider Family Medicine | DX: R39.9 Unspecified symptoms and signs involving the genitourinary system (principal); R30.0 Dysuria; E11.9 Type 2 diabetes mellitus without complications | CPT/HCPCS: 80048; 81000; 83036 ==

== ENCOUNTER 2023-07-30 10:57 | Outpatient (CLI) | payer BC, MEDICAID, SELFPAY ==
--- NOTE | 2023-07-30 11:03 | MM_ITS ---
WS: [id number] DIAGNOSTIC BILATERAL DIGITAL BREAST TOMOSYNTHESIS MAMMOGRAPHY WITH CAD Bilateral breast ultrasound, limited HISTORY: Breast pain, bilateral pain. No palpable nodules. COMPARISON: 05/12/2019 TECHNIQUE: Bilateral craniocaudad, mediolateral oblique, and mediolateral views are submitted with to mosmarilyn and JODI. Bilateral spot compression views CC and MLO. Computer aided detection utilized. Breast composition: There are scattered areas of fibroglandular density. There are no masses or suspi cious findings within either breast. Slight asymmetry in the upper outer quadrant of the LEFT breast. There is a prior biopsy clip noted. By history benign pathology associated with the biopsy. Bilateral breast ultrasound, limited. Bilateral breast ultrasound is directed to the areas of pain as indicated by the patient. There are n o suspicious masses and no distortion within either breast at the area of pain. IMPRESSION: MM/[place] [id number] BI-RADS: 2-Benign FOLLOW UP: 1 Year Follow-up
== END 2023-07-30 10:58 | disposition home or self-care (01) ==
LOC: RAD 10:58
PROVIDERS: PCP Family Medicine; Visit Provider Family Medicine
DX: N64.4 Mastodynia (principal)
CPT/HCPCS: 76642; 77062; G0279

== ENCOUNTER 2023-10-14 12:06 | Outpatient (RCR) | payer BC, MEDICAID, SELFPAY | END 2023-11-12 23:59 | disposition home or self-care (01) | LOC: CR 12:06 | PROVIDERS: PCP Family Medicine; Referring Provider Internal Medicine; Visit Provider Internal Medicine | DX: Z95.5 Presence of coronary angioplasty implant and graft (principal) | CPT/HCPCS: 93798 ==

== ENCOUNTER → 2023-10-31 09:10 | Outpatient (BNVA) | payer BC, MEDICAID, SELFPAY | PROVIDERS: PCP Family Medicine; Visit Provider Family Medicine | DX: Z01.419 Encounter for gynecological examination (general) (routine) without abnormal findings (principal); R79.89 Other specified abnormal findings of blood chemistry; I25.5 Ischemic cardiomyopathy; E78.2 Mixed hyperlipidemia; E11.65 Type 2 diabetes mellitus with hyperglycemia; E55.9 Vitamin D deficiency, unspecified; F17.219 Nicotine dependence, cigarettes, with unspecified nicotine-induced disorders | CPT/HCPCS: 80053; 80061; 81000; 82043; 82306; 82607; 83036; 84439; 84443; 85025 ==

== ENCOUNTER → 2023-11-01 09:28 | Outpatient (BNVA) | payer BC, MEDICAID, SELFPAY | PROVIDERS: PCP Family Medicine; Visit Provider Family Medicine | DX: Z01.419 Encounter for gynecological examination (general) (routine) without abnormal findings (principal) | CPT/HCPCS: 87624 ==

== ENCOUNTER → 2024-02-10 12:43 | Outpatient (BNVA) | payer BC, MEDICAID, SELFPAY | PROVIDERS: PCP Family Medicine; Visit Provider Nurse Practitioner | DX: J02.9 Acute pharyngitis, unspecified (principal) | CPT/HCPCS: 87880 ==

== ENCOUNTER 2024-03-04 13:59 | Outpatient (CLI) | payer BC, MEDICAID, SELFPAY ==
[2024-03-04 14:17] VITALS: PULSE 91; RESP 18; O2SAT 98
[2024-03-04] MEDS: albuterol 2.5 mg/3 mL Neb INHALATION (14:17)
[2024-03-04 14:21] VITALS: PULSE 98
== END 2024-03-04 14:00 | disposition home or self-care (01) ==
PROVIDERS: PCP Family Medicine; Visit Provider Nurse Practitioner Family
DX: Z20.2 Contact with and (suspected) exposure to infections with a predominantly sexual mode of transmission (principal); R39.9 Unspecified symptoms and signs involving the genitourinary system; F17.219 Nicotine dependence, cigarettes, with unspecified nicotine-induced disorders; R94.2 Abnormal results of pulmonary function studies
CPT/HCPCS: 81000; 87086; 87491; 87591; 94060; 94726; 94729; J7613

== ENCOUNTER → 2024-04-12 13:00 | Outpatient (BNVA) | payer BC, MEDICAID, SELFPAY | PROVIDERS: PCP Family Medicine; Visit Provider Emergency Medicine | DX: R05.9 Cough, unspecified (principal) | CPT/HCPCS: 87400 ==

== ENCOUNTER 2024-05-10 17:58 | Emergency (ER) | payer BC, MEDICAID, SELFPAY ==
[2024-05-10 18:10] VITALS: PULSE 112; RESP 18; O2SAT 99; BMI 29.9
--- NOTE | 2024-05-10 18:16 | ED_ITS ---
Documented by User: Rosibel Mosley MD 05/10/24 19:51 HPI - Skin/Abscess/Foreign Bdy 2 General: Chief complaint: Skin/Abscess/Foreign Body Stated complaint: sore on Left leg sent UC Time Seen by Provider: 05/10/24 18:00 Source: patient Mode of arrival: ambulatory Limitations: no limitations History of Present Illness: 48-year-old female states she has had so me erythema to her left inner thigh after shaving over the last few days she was seen yesterday urgent care who prescribed her cream states it worsened and she had a blister forearm she has some pain at the site denies any drainage denies any fevers. Associated symptoms: Deny chills, fever(s), nausea or vomiting Related Data Home Medications Medication Instructions Recorded Confirmed aspirin 81 mg tablet,delayed 81 mg PO DAILY 09/20/22 05/10/24 release cetirizine 10 mg tablet 10 mg PO DAILY PRN 09/20/22 05/10/24 Previous Rx's Medication Instructions Recorded diphenhydramine HCl 25 mg capsule 25 mg PO Q6H PRN allergic reaction 01/14/23 (Benadryl) #30 caps sacubitril 97 mg-valsartan 103 mg 1 tab PO BID #180 tabs 01/17/23 tablet ipratropium 0.5 mg-albuterol 3 mg 3 ml inhalation BID #180 mL 04/24/23 (2.5 mg base)/3 mL nebulization soln varenicline 1 mg tablet 1 mg PO BID #60 tabs 10/31/23 atorvastatin 40 mg tablet See Rx Instructions .Route 01/13/24 .COMPLEX #90 tabs Lantus Solostar U-100 Insulin 100 See Rx Instructions .Route 01/28/24 unit/mL (3 mL) subcutaneous pen .COMPLEX #15 mL (insulin glargine) alcohol swabs 1 pad topical DIRECTED #200 ea 01/28/24 blood-glucose meter,continuous #1 ea 01/28/24 (Dexcom G7 [employer]ist) blood-glucose sensor (Dexcom G7 #1 ea 01/28/24 Sensor device) insulin aspart U-100 100 unit/mL 10 unit (0.1 mL) SUBCUT TID #15 mL 01/28/24 (3 mL) subcutaneous pen pen needle, diabetic 30 gauge x #100 ea 01/28/2411/27 (Pen Needle) clopidogrel 75 mg tablet 75 mg PO DAILY #30 tabs 02/06/24 blood-glucose meter (OneTouch #1 ea 02/26/24 Ultra2 Meter) metoprolol tartrate 25 mg tablet 37.5 mg (1.5 x 25 mg) PO BID 30 03/27/24 days #90 tabs albuterol sulfate 90 mcg/actuation 2 inh inhalation Q4H PRN shortness 04/12/24 aerosol inhaler of breath or wheezing #6.7 grams promethazine-DM 6.25 mg-15 mg/5 mL 10 ml PO Q6H PRN cough #473 mL 04/12/24 oral syrup hydrocodone 5 mg-acetaminophen 325 1 tab PO Q6H PRN pain 5 days #10 05/09/24 mg tablet tabs mupirocin 2 % topical ointment 1 applic topical TID #22 grams 05/09/24 sulfamethoxazole 800 1 tab PO BID 10 days #20 tabs 05/09/24 mg-trimethoprim 160 mg tablet (Bactrim DS) Allergies Allergy/AdvReac Type Severity Reaction Status Date / Time pseudoephedrine Allergy Mild Elevated Verified 05/10/24 17:50 [From Sudafed] Heartrate bee venom protein (honey bee) Allergy Unknown Verified 05/10/24 17:50 Chocolate Allergy Mild ALGY-Hives Uncoded 05/10/24 17:50 Review of Systems 2 Const: Denies: fever(s), chills, body aches or change in appetite ENMT: Denies: throat pain or dental pain Card: Denies: chest pain Resp: Denies: dyspnea GI: Denies: abdominal pain, nausea, vomiting or diarrhea Musc: Denies: neck pain or back pain Skin/Breast: Reports: erythema; Denies: rash Neuro: Denies: headache(s) PFSH ED 2 PFSH: Medical History Systolic CHF with reduced left ventricular function, NYHA class 2 PAD (peripheral artery disease) Nicotine dependence, cigarettes, with unspecified nicotine-induced disorders Diabetes, polyneuropathy COPD (chronic obstructive pulmonary disease) Social History Smoking and tobacco/nicotine status: current every day tobacco/nicotine user cigarettes Packs smoked per day: 1 Second hand smoke exposure: No Alcohol intake: never Substance/Drug Use: never Adopted: No Caregiver/support person: No Lives independently: Yes Housing: House Female Reproductive History: Spontaneous abortions: No Physical Exam 2 Const: COMMON NORMALS: no acute distress, patient oriented x3 and healthy appearing HENMT: COMMON NORMALS: normocephalic and atraumatic HEAD & SCALP: n ormocephalic and atraumatic Neck/C-Spine: COMMON NORMALS: full ROM and supple Chest: COMMONS NORMALS: normal inspection of the chest Resp: COMMON NORMALS: normal respiratory effort Cardio: COMMON NORMALS: regular rate, regular rhythm and No murmurs present (Cardio) RATE: regular rate RHYTHM: regular rhythm Extremity: COMMON NORMALS: full ROM Neuro: COMMON NORMALS: patient oriented x3, moves all extremities and no focal motor deficits Psych: COMMON NORMALS: mental status grossly normal, Normal thought process present and cooperative THOUGHT PROCESS: Normal thought process present Skin: NARRATIVE SKIN EXAM: Erythema noted to left inner thigh Course 2 Vital Signs: Vital signs: Vital Signs Temperature 98.6 F 05/10/24 18:37 Pulse Rate 93 05/10/24 20:03 Respiratory Rate 16 05/10/24 18:38 Blood Pressure 125/71 05/10/24 20:03 Pulse Oximetry 94 05/10/24 20:03 Oxygen Delivery Me thod Room Air 05/10/24 19:15 MDM - Skin/Abscess/Foreign Bdy Medicial Decision Making Patient presents for an abscess to left inner thigh with cellulitis blood work here is normal no signs of necrotizing fasciitis did incise and drain the abscess did give IV clindamycin she is to continue the Bactrim she is return if worsening she understands agrees to plan Medical Records I reviewed the patient's medical records. Lab Data I reviewed the patient's lab results. 05/10/24 18:38 Laboratory Results WBC 11.07 10^3/uL (3.29-11.43) 05/10/24 18:38 RBC 4.75 10^6/uL (3.85-5.65) 05/10/24 18:38 Hgb 15.40 g/dL (11.27-16.99) 05/10/24 18:38 Hct 46.7 % (36-47) 05/10/24 18:38 MCV 98.3 fl (85-98) H 05/10/24 18:38 MCH 32.4 pg (27-33) 05/10/24 18:38 MCHC 33.0 g/dL (30-55) 05/10/24 18:38 RDW 12.4 % (12.1-15.1) 05/10/24 18:38 Plt Count 334 10^3/cmm (157-399) 05/10/24 18:38 MPV 9.7 fL (7.4-10.4) 05/10/24 18:38 Neut % (Auto) 62.2 % 05/10/24 18:38 Lymph % (Auto) 28.4 % 05/10/24 18:38 [place] % (Auto) 6.8 % 05/10/24 18:38 Eos % (Auto) 1.6 % 05/10/24 18:38 Baso % (Auto) 0.5 % 05/10/24 18:38 Neut # (Auto) 6.89 10^3/uL (1.8-7.7) 05/10/24 18:38 Lymph # (Auto) 3.1 10^3/uL (0.8-4.8) 05/10/24 18:38 [place] # (Auto) 0.8 10^3/uL (0.2-0.9) 05/10/24 18:38 Eos # (Auto) 0.2 10^3/uL (0.0-0.8) 05/10/24 18:38 Baso # (Auto) 0.1 10^3/uL (0.0-0.1) 05/10/24 18:38 Nucleated RBC % (auto) 0 % 05/10/24 18:38 Nucleated RBCs # 0.0 /100WBC 05/10/24 18:38 ESR 16 mm/hr (0-15) H 05/10/24 18:38 C-Reactive Protein 43.5 mg/L (0.0-4.9) H 05/10/24 18:38 No radiology studies performed this visit Discharge Plan Discharge Patient Disposition: Home Clinical Impression: Abscess of skin or subcutaneous tissue, Cellulitis Condition: Stable Prescriptions: No Action cetirizine 10 mg tablet 10 mg PO DAILY PRN aspirin 81 mg tablet,delayed release (DR/EC) 81 mg PO DAILY ipratropium-albuterol 0.5 mg-3 mg(2.5 mg base)/3 mL solution for nebulization 3 ml inhalation BID Qty: 180 1RF varenicline 1 mg tablet 1 mg PO BID Qty: 60 2RF (DME) Dexcom G7 Sensor Device See Rx Instructions .Route Qty: 1 5RF Rx Instructions: As directed (DME) Dexcom G7 [employer] Misc See Rx Instructions .Route Qty: 1 0RF Rx Instructions: As directed insulin aspart U-100 100 unit/mL (3 mL) insulin pen 10 unit SUBCUT TID Qty: 15 5RF Rx Instructions: 5 units with each meal plus Sliding Scale - Max daily dose 45 units. insulin glargine [Lantus Solostar U-100 Insulin] 100 unit/mL (3 mL) insulin pen See Rx Instructions .ROUTE .COMPLEX Qty: 15 2RF Dose Instruction: INJECT 35 UNITS SUBCUTANEOUSLY IN THE MORNING Rx Instructions: INJECT 35 UNITS SUBCUTANEOUSLY IN THE MORNING alcohol swabs Pads, Medicated 1 pad topical DIRECTED Qty: 200 2RF Rx Instructions: Use as directed to clean skin prior to finger stick or medication injection (DME) pen needle, diabetic [Pen Needle] 30 gauge x 5/16 needle See Rx Instructions .MEDSUPPLY Qty: 100 2RF Rx Instructions: Use as directed for insulin administration promethazine-DM 6.25-15 mg/5 mL syrup 10 ml PO Q6H PRN (Reason: cough) Qty: 473 0RF albuterol sulfate 90 mcg/actuation HFA aerosol inhaler 2 inh inhalation Q4H PRN (Reason: shortness of breath or wheezing) Qty: 6.7 0RF hydrocodone-acetaminophen 5-325 mg tablet 1 tab PO Q6H PRN (Reason: pain) 5 Days Qty: 10 0RF sulfamethoxazole-trimethoprim [Bactrim DS] 800-160 mg tablet 1 tab PO BID 10 Days Qty: 20 0RF mupirocin 2 % ointment 1 applic topical TID Qty: 22 0RF sacubitril-valsartan 97-103 mg tablet 1 tab PO BID Qty: 180 3RF atorvastatin 40 mg tablet See Rx Instructions .ROUTE .COMPLEX Qty: 90 0RF Dose Instruction: Take 1 tablet by mouth once daily Rx Instructions: Take 1 tablet by mouth once daily clopidogrel 75 mg tablet 75 mg PO DAILY Qty: 30 2RF (DME) blood-glucose meter [OneTouch Ultra2 Meter] Misc See Rx Instructions .ROUTE .COMPLEX Qty: 1 0RF Dose Instruction: USE TO CHECK BLOOD SUGAR LEVELS 4 TIMES A DAY Rx Instructions: USE TO CHECK BLOOD SUGAR LEVELS 4 TIMES A DAY metoprolol tartrate 25 mg tablet 37.5 mg PO BID 30 Days Qty: 90 3RF Benadryl 25 mg capsule 25 mg PO Q6H PRN (Reason: allergic reaction) Qty: 30 0RF Discharge Orders: Discharge ED (Routine); Ordered 05/10/24 Ordered By: Rosibel Mosley Discharge Diet: Advance as tolerated Discharge Activity: Use walker/crutches as instructed Patient Instructions: Cellulitis (ED), Abscess (ED) Coding Level of Care Code ED Plan Nurse for Chg Fwd Documented by User: GUERLINE Yeung 05/10/24 20:43 HPI - Skin/Abscess/Foreign Bdy 2 General: Chief complaint: Skin/Abscess/Foreign Body Stated complaint: sore on Left leg sent UC Time Seen by Provider: 05/10/24 18:00 Related Data Home Medications Medication Instructions Recorded Confirmed aspirin 81 mg tablet,delayed 81 mg PO DAILY 09/20/22 05/10/24 release cetirizine 10 mg tablet 10 mg PO DAILY PRN 09/20/22 05/10/24 Previous Rx's Medication Instructions Recorded diphenhydramine HCl 25 mg capsule 25 mg PO Q6H PRN allergic reaction 01/14/23 (Benadryl) #30 caps sacubitril 97 mg-valsartan 103 mg 1 tab PO BID #180 tabs 01/17/23 tablet ipratropium 0.5 mg-albuterol 3 mg 3 ml inhalation BID #180 mL 04/24/23 (2.5 mg base)/3 mL nebulization soln varenicline 1 mg tablet 1 mg PO BID #60 tabs 10/31/23 atorvastatin 40 mg tablet See Rx Instructions .Route 01/13/24 .COMPLEX #90 tabs Lantus Solostar U-100 Insulin 100 See Rx Instructions .Route 01/28/24 unit/mL (3 mL) subcutaneous pen .COMPLEX #15 mL (insulin glargine) alcohol swabs 1 pad topical DIRECTED #200 ea 01/28/24 blood-glucose meter,continuous #1 ea 01/28/24 (Dexcom G7 [employer]ist) blood-glucose sensor (Dexcom G7 #1 ea 01/28/24 Sensor device) insulin aspart U-100 100 unit/mL 10 unit (0.1 mL) SUBCUT TID #15 mL 01/28/24 (3 mL) subcutaneous pen pen needle, diabetic 30 gauge x #100 ea 01/28/2411/27 (Pen Needle) clopidogrel 75 mg tablet 75 mg PO DAILY #30 tabs 02/06/24 blood-glucose meter (OneTouch #1 ea 02/26/24 Ultra2 Meter) metoprolol tartrate 25 mg tablet 37.5 mg (1.5 x 25 mg) PO BID 30 03/27/24 days #90 tabs albuterol sulfate 90 mcg/actuation 2 inh inhalation Q4H PRN shortness 04/12/24 aerosol inhaler of breath or wheezing #6.7 grams promethazine-DM 6.25 mg-15 mg/5 mL 10 ml PO Q6H PRN cough #473 mL 04/12/24 oral syrup hydrocodone 5 mg-acetaminophen 325 1 tab PO Q6H PRN pain 5 days #10 05/09/24 mg tablet tabs mupirocin 2 % topical ointment 1 applic topical TID #22 grams 05/09/24 sulfamethoxazole 800 1 tab PO BID 10 days #20 tabs 05/09/24 mg-trimethoprim 160 mg tablet (Bactrim DS) Allergies Allergy/AdvReac Type Severity Reaction Status Date / Time pseudoephedrine Allergy Mild Elevated Verified 05/10/24 17:50 [From Sudafed] Heartrate bee venom protein (honey bee) Allergy Unknown Verified 05/10/24 17:50 Chocolate Allergy Mild ALGY-Hives Uncoded 05/10/24 17:50 PFSH ED 2 PFSH: Medical History Systolic CHF with reduced left ventricular function, NYHA class 2 PAD (peripheral artery disease) Nicotine dependence, cigarettes, with unspecified nicotine-induced disorders Diabetes, polyneuropathy COPD (chronic obstructive pulmonary disease) Social History Smoking and tobacco/nicotine status: current every day tobacco/nicotine user cigarettes Packs smoked per day: 1 Second hand smoke exposure: No Alcohol intake: never Substance/Drug Use: never Adopted: No Caregiver/support person: No Lives independently: Yes Housing: House Procedures Abscess I/D Site: lower extremity Side (if applicable): left Sedation/analgesia: none Technique: incised with #11 blade Amount of fluid expressed (mL): 3 Irrigation: Yes Packing used?: none Complications: other (Bullous lesion lanced and skin removed, seropurulent fluid expressed.) Course 2 Vital Signs: Vital signs: Vital Signs Temperature 98.6 F 05/10/24 18:37 Pulse Rate 93 05/10/24 20:03 Respiratory Rate 16 05/10/24 18:38 Blood Pressure 125/71 05/10/24 20:03 Pulse Oximetry 94 05/10/24 20:03 Oxygen Delivery Me thod Room Air 05/10/24 19:15 MDM - Skin/Abscess/Foreign Bdy Lab Data 05/10/24 18:38 Laboratory Results WBC 11.07 10^3/uL (3.29-11.43) 05/10/24 18:38 RBC 4.75 10^6/uL (3.85-5.65) 05/10/24 18:38 Hgb 15.40 g/dL (11.27-16.99) 05/10/24 18:38 Hct 46.7 % (36-47) 05/10/24 18:38 MCV 98.3 fl (85-98) H 05/10/24 18:38 MCH 32.4 pg (27-33) 05/10/24 18:38 MCHC 33.0 g/dL (30-55) 05/10/24 18:38 RDW 12.4 % (12.1-15.1) 05/10/24 18:38 Plt Count 334 10^3/cmm (157-399) 05/10/24 18:38 MPV 9.7 fL (7.4-10.4) 05/10/24 18:38 Neut % (Auto) 62.2 % 05/10/24 18:38 Lymph % (Auto) 28.4 % 05/10/24 18:38 [place] % (Auto) 6.8 % 05/10/24 18:38 Eos % (Auto) 1.6 % 05/10/24 18:38 Baso % (Auto) 0.5 % 05/10/24 18:38 Neut # (Auto) 6.89 10^3/uL (1.8-7.7) 05/10/24 18:38 Lymph # (Auto) 3.1 10^3/uL (0.8-4.8) 05/10/24 18:38 [place] # (Auto) 0.8 10^3/uL (0.2-0.9) 05/10/24 18:38 Eos # (Auto) 0.2 10^3/uL (0.0-0.8) 05/10/24 18:38 Baso # (Auto) 0.1 10^3/uL (0.0-0.1) 05/10/24 18:38 Nucleated RBC % (auto) 0 % 05/10/24 18:38 Nucleated RBCs # 0.0 /100WBC 05/10/24 18:38 ESR 16 mm/hr (0-15) H 05/10/24 18:38 C-Reactive Protein 43.5 mg/L (0.0-4.9) H 05/10/24 18:38 Discharge Plan Discharge Patient Disposition: Home Clinical Impression: Abscess of skin or subcutaneous tissue, Cellulitis Condition: Stable Prescriptions: No Action cetirizine 10 mg tablet 10 mg PO DAILY PRN aspirin 81 mg tablet,delayed release (DR/EC) 81 mg PO DAILY ipratropium-albuterol 0.5 mg-3 mg(2.5 mg base)/3 mL solution for nebulization 3 ml inhalation BID Qty: 180 1RF varenicline 1 mg tablet 1 mg PO BID Qty: 60 2RF (DME) Dexcom G7 Sensor Device See Rx Instructions .Route Qty: 1 5RF Rx Instructions: As directed (DME) Dexcom G7 [employer] Misc See Rx Instructions .Route Qty: 1 0RF Rx Instructions: As directed insulin aspart U-100 100 unit/mL (3 mL) insulin pen 10 unit SUBCUT TID Qty: 15 5RF Rx Instructions: 5 units with each meal plus Sliding Scale - Max daily dose 45 units. insulin glargine [Lantus Solostar U-100 Insulin] 100 unit/mL (3 mL) insulin pen See Rx Instructions .ROUTE .COMPLEX Qty: 15 2RF Dose Instruction: INJECT 35 UNITS SUBCUTANEOUSLY IN THE MORNING Rx Instructions: INJECT 35 UNITS SUBCUTANEOUSLY IN THE MORNING alcohol swabs Pads, Medicated 1 pad topical DIRECTED Qty: 200 2RF Rx Instructions: Use as directed to clean skin prior to finger stick or medication injection (DME) pen needle, diabetic [Pen Needle] 30 gauge x 5/16 needle See Rx Instructions .MEDSUPPLY Qty: 100 2RF Rx Instructions: Use as directed for insulin administration promethazine-DM 6.25-15 mg/5 mL syrup 10 ml PO Q6H PRN (Reason: cough) Qty: 473 0RF albuterol sulfate 90 mcg/actuation HFA aerosol inhaler 2 inh inhalation Q4H PRN (Reason: shortness of breath or wheezing) Qty: 6.7 0RF hydrocodone-acetaminophen 5-325 mg tablet 1 tab PO Q6H PRN (Reason: pain) 5 Days Qty: 10 0RF sulfamethoxazole-trimethoprim [Bactrim DS] 800-160 mg tablet 1 tab PO BID 10 Days Qty: 20 0RF mupirocin 2 % ointment 1 applic topical TID Qty: 22 0RF sacubitril-valsartan 97-103 mg tablet 1 tab PO BID Qty: 180 3RF atorvastatin 40 mg tablet See Rx Instructions .ROUTE .COMPLEX Qty: 90 0RF Dose Instruction: Take 1 tablet by mouth once daily Rx Instructions: Take 1 tablet by mouth once daily clopidogrel 75 mg tablet 75 mg PO DAILY Qty: 30 2RF (DME) blood-glucose meter [OneTouch Ultra2 Meter] [facility] [place] Rx Instructions .ROUTE .COMPLEX Qty: 1 0RF Dose Instruction: USE TO CHECK BLOOD SUGAR LEVELS 4 TIMES A DAY Rx Instructions: USE TO CHECK BLOOD SUGAR LEVELS 4 TIMES A DAY metoprolol tartrate 25 mg tablet 37.5 mg PO BID 30 Days Qty: 90 3RF Benadryl 25 mg capsule 25 mg PO Q6H PRN (Reason: allergic reaction) Qty: 30 0RF Discharge Orders: Discharge ED (Routine); Ordered 05/10/24 Ordered By: Rosibel Mosley Discharge Diet: Advance as tolerated Discharge Activity: Use walker/crutches as instructed Patient Instructions: Cellulitis (ED), Abscess (ED) Coding Level of Care Code ED Plan Nurse for Tyron Sheffield
[2024-05-10] MEDS: ondansetron 2 mg/ML SDV 2 mL 4 MG IVP (18:36)
[2024-05-10 18:37] VITALS: BP 149/87; TEMP 37
[2024-05-10 18:38] VITALS: RESP 16; O2SAT 96
[2024-05-10] MEDS: morphine 4 mg/mL SDV 1 mL IVP (18:38)
[2024-05-10] MEDS: clindamycin 900 MG/50 ML PREMIX 100 MG IV (18:55)
[2024-05-10 18:59] LABS: Basophils # 0.1 10^3/uL (0.0-0.1); Basophils % 0.5 %; Eosinophils # 0.2 10^3/uL (0.0-0.8); Eosinophils % 1.6 %; Hematocrit 46.7 % (36-47); Lymphocytes # 3.1 10^3/uL (0.8-4.8); Lymphocytes % 28.4 %; Mean Corpuscular Hemoglobin 32.4 pg (27-33); Mean Corpuscular Volume 98.3 fl (85-98); Mean Platelet Volume 9.7 fL (7.4-10.4); Monocytes # 0.8 10^3/uL (0.2-0.9); Monocytes % 6.8 %; Neutrophils # 6.89 10^3/uL (1.8-7.7); Neutrophils % 62.2 %; Nucleated Red Blood Cells % 0 %; Platelet Count 334 10^3/cmm (157-399); Red Blood Count 4.75 10^6/uL (3.85-5.65); Red Cell Distribution Width 12.4 % (12.1-15.1); White Blood Count 11.07 10^3/uL (3.29-11.43)
[2024-05-10 19:15] VITALS: BP 125/71; PULSE 93; O2SAT 94
[2024-05-10 19:15] LABS: C Reactive Protein 43.5 mg/L (0.0-4.9)
[2024-05-10 19:19] LABS: Erythrocyte Sedimentation Rate 16 mm/hr (0-15)
[2024-05-10 20:03] VITALS: BP 125/71; PULSE 93; O2SAT 94
== END 2024-05-10 20:05 | disposition home or self-care (01) ==
PROVIDERS: Emergency Provider Emergency Medicine
DX: L03.116 Cellulitis of left lower limb (principal); L02.416 Cutaneous abscess of left lower limb
CPT/HCPCS: 10060; 36415; 85025; 85651; 86140; 87070; 87075; 87205; 96365; 96375; 99284; J2270; J2405; J3490

== ENCOUNTER 2024-05-11 20:00 | Outpatient (CLI) | payer BC, MEDICAID, SELFPAY | END 2024-05-11 20:01 | disposition home or self-care (01) | LOC: SLEEP 05-12 | PROVIDERS: Visit Provider Nurse Practitioner Family | DX: G47.33 Obstructive sleep apnea (adult) (pediatric) (principal); I25.10 Atherosclerotic heart disease of native coronary artery without angina pectoris; Z95.5 Presence of coronary angioplasty implant and graft; I10 Essential (primary) hypertension; I50.20 Unspecified systolic (congestive) heart failure; R06.83 Snoring | CPT/HCPCS: 95810 ==

== ENCOUNTER → 2024-06-03 12:52 | Outpatient (BNVA) | payer BC, MEDICAID, SELFPAY | PROVIDERS: PCP Family Medicine; Visit Provider Family Medicine | DX: E11.9 Type 2 diabetes mellitus without complications (principal); Z79.4 Long term (current) use of insulin | CPT/HCPCS: 80053; 80061; 83036; 84439; 84443; 85025 ==

== ENCOUNTER → 2024-08-06 15:35 | Outpatient (BNVA) | payer BC, MEDICAID, SELFPAY | PROVIDERS: PCP Family Medicine; Visit Provider Nurse Practitioner Family | DX: R52 Pain, unspecified (principal) | CPT/HCPCS: 87400; 87426 ==

== ENCOUNTER 2024-09-04 07:53 | Outpatient (CLI) | payer BC, MEDICAID, SELFPAY ==
[2024-09-04 09:11] LABS: Alanine Aminotransferase 14 U/L (0-33); Albumin Level 3.8 g/dL (3.5-5.2); Alkaline Phosphatase 70 U/L (35-105); Anion Gap 17.1 (5-19); Aspartate Amino Transferase 10 U/L (0-32); Blood Urea Nitrogen 10 mg/dL (6-20); Calcium 8.9 mg/dL (8.5-10.5); Carbon Dioxide 21 mmol/L (22-29); Chloride 97 mmol/L (98-107); Chol HDL Ratio 2.86 mg/dL (0.0-4.40); Cholesterol 123 mg/dL (0-200); Globulin 2.7 g/dL (1.3-4.6); Glomerular Filtration Rate 170.4 mL/min (90-130); Glucose 295 mg/dL (65-115); HDL Cholesterol 43 mg/dL (60-100); LDL Cholesterol Calculated 54 mg/dL (50-129); LDL HDL Ratio 1.26 RATIO (0.00-3.22); Osmolality Calculated 282 mOsm/kg (285-295); Potassium 4.1 mmol/L (3.5-5.1); Sodium 131 mmol/L (136-145); Total Bilirubin 0.6 mg/dL (0.15-1.2); Total Protein 6.5 g/dL (6.6-8.7); Triglycerides 130 mg/dL (0-150)
[2024-09-04 09:14] LABS: Estmated Average Glucose 278; Hemoglobin A1C 11.3 % (4.0-6.0)
[2024-09-04 09:19] LABS: Creatinine Urine, Random 52 mg/dL (28-217); Microalbumin Random Urine 7 ug/dL (0-20)
[2024-09-04 09:22] LABS: Microalbum Creatinine Ratio Ur 135 mg/dL (0-20)
[2024-09-05 09:45] LABS: C-Peptide 2.18 ng/mL (0.80-3.85)
== END 2024-09-04 07:54 | disposition home or self-care (01) ==
LOC: LAB 07:54
PROVIDERS: PCP Family Medicine; Visit Provider Internal Medicine
DX: E11.9 Type 2 diabetes mellitus without complications (principal); Z79.4 Long term (current) use of insulin
CPT/HCPCS: 36415; 80053; 80061; 82044; 83036; 84681; 86337; 86341

== ENCOUNTER 2024-09-08 20:00 | Outpatient (CLI) | payer BC, MEDICAID, SELFPAY | END 2024-09-08 20:01 | disposition home or self-care (01) | LOC: SLEEP 22:40 | PROVIDERS: PCP Family Medicine; Visit Provider Family Medicine | DX: G47.33 Obstructive sleep apnea (adult) (pediatric) (principal) | CPT/HCPCS: 95811 ==

== ENCOUNTER → 2024-10-01 14:50 | Outpatient (BNVA) | payer BC, MEDICAID, SELFPAY | PROVIDERS: PCP Family Medicine | DX: R39.9 Unspecified symptoms and signs involving the genitourinary system (principal) | CPT/HCPCS: 81000 ==

== ENCOUNTER 2024-11-16 08:53 | Outpatient (CLI) | payer BC, MEDICAID, SELFPAY ==
--- NOTE | 2024-11-16 09:15 | USCV_ITS ---
Nayana Mera Age: 49 Gender: F : 1975 Exam Date: 11/16/2024 09:17 Ordering Phys: Cecilia Key MD ([email or web address]) Technologist: Exam Location: [place] Indication: hx of cad BP: 120 / 70 HR: 80 Rhythm: Sinus Technical Quality: Fair MEASUREMENTS (Male / Female) Normal Values 2D ECHO LV Diastolic Diameter PLAX 4.6 cm 4.2 - 5.9 / 3.9 - 5.3 cm IVS Diastolic Thickness 1.3 cm 0.6 - 1.0 / 0.6 - 0.9 cm IVS Systolic Thickness 1.8 cm LVPW Diastolic Thickness 1.1 cm 0.6 - 1.0 / 0.6 - 0.9 cm LVPW Systolic Thickness 1.2 cm LVOT Diameter 2.1 cm LV Ejection Fraction 2D Teich 51.9 % LV Ejection Fraction MOD 4C 58.9 % LV Ejection Fraction MOD 2C 40.5 % LV Ejection Fraction 2C AL 42.2 % LA Diameter 3.3 cm RA Systolic Volume 4C AL 35.7 ml RA Systolic Volume 4C MOD 35.2 ml Aorta at Sinotubular Diameter 2.7 cm IVC Diameter 1.1 cm M-MODE LA Ao Ratio MM 1.5 AV Cusp Separation MM 2.2 cm DOPPLER AV Peak Velocity 107.0 cm/s LVOT Peak Velocity 81.0 cm/s AV Area Cont Eq vti 3.7 cm squared AV Area Cont Eq pk 2.5 cm squared MV Area PHT 5.0 cm squared Mitral E to A Ratio 0.6 TV Peak Velocity 148.5 cm/s TR Peak Velocity 164.0 cm/s TR Peak Gradient 10.8 mmHg TV Peak E Velocity 86.0 cm/s PV Peak Velocity 111.0 cm/s FINDINGS Left Ventricle Mildly dilated LV cavity. Diffuse hypokinesis of the septum, anteroseptum and dyskinetic basal inferior wall segments. LV ejection fraction of 40.5% Right Ventricle The right ventricle is normal in size and function. Right Atrium The right atrium is normal in size. Left Atrium The left atrium is normal in size. Mitral Valve Trace mitral valve regurgitation. Aortic Valve No gross abnormalities noted Tricuspid Valve Trace tricuspid valve regurgitation. Pulmonic Valve Pulmonic valve not well visualized. Pericardium No pericardial effusion. Aorta Normal aortic annulus size. IVC Inferior vena cava not visualized. CONCLUSIONS Mildly dilated LV cavity. Diffuse hypokinesis of the septum, anteroseptum and dyskinetic basal inferior wall segments. LV ejection fraction of 40.5%. Trace mitral valve regurgitation. Trace tricuspid valve regurgitation. There is no pericardial effusion. There are no intracardiac masses. Compared to the study from 02/20/2023, there is slight improvement in the LV ejection fraction Dr Cecilia Key MD [facility] (Electronically Signed) Final Date: 18 Nov 2024 23:12 S
== END 2024-11-16 08:54 | disposition home or self-care (01) ==
PROVIDERS: PCP Family Medicine; Visit Provider Internal Medicine Cardiovascular Disease
DX: R06.09 Other forms of dyspnea (principal); R93.1 Abnormal findings on diagnostic imaging of heart and coronary circulation; I42.0 Dilated cardiomyopathy
CPT/HCPCS: 93306

== ENCOUNTER 2025-01-02 19:14 | Emergency (ER) | payer MEDICAID, SELFPAY ==
--- NOTE | 2025-01-02 19:15 | XRR_ITS ---
PROCEDURE INFORMATION: Exam: XR Left Ankle Exam date and time: 01/02/2025 7:19 PM Age: 49 years old Clinical indication: Injury or trauma; Fall; Blunt trauma; Ankle; Left; Additional info: Falll TECHNIQUE: Imaging protocol: Radiologic exam of the left ankle. Views: 3 or more views. COMPARISON: CT angio abd aorta runof [id number] 10/09/2022 3:12 PM FINDINGS: Bones/joints: Normal mineralization and alignment. No evidence of acute fracture or dislocation. Mild degenerative changes of the tibiotalar joint. No evidence of joint effusion. Soft tissues: The soft tissues are within normal limits. XR/XR ankle LT min 3V* [id number] IMPRESSION: No evidence of acute fracture or dislocation.
--- NOTE | 2025-01-02 19:15 | XRR_ITS ---
PROCEDURE INFORMATION: Exam: XR Left Foot Exam date and time: 01/02/2025 7:19 PM Age: 49 years old Clinical indication: Injury or trauma; Fall; Blunt trauma; Foot; Prior surgery; Surgery date: 6+ months; Surgery type: Amputation of left first metatarsal/toe TECHNIQUE: Imaging protocol: Radiologic exam of the left foot. Views: 3 or more views. 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 Mildly displaced acute oblique fracture of the 5th mid metatarsal. Mild irregularity of the 5th proximal phalanx, likely sequela of prior injury. Soft tissues: Mild soft tissue swelling. XR/XR foot LT min 3V* [id number] IMPRESSION: Mildly displaced acute oblique fracture of the 5th mid metatarsal.
[2025-01-02 19:25] VITALS: BP 112/76; PULSE 80; RESP 17; TEMP 36.7; O2SAT 96; BMI 32.5
--- NOTE | 2025-01-02 19:25 | ED_ITS ---
HPI - Extremity Injury (Lower) General: Chief Complaint: Extremity Injury, Lower Stated Complaint: Fell and twisted L Foot Time Seen by Provider: 01/02/25 19:15 Source: patient Mode of arrival: wheelchair Limitations: no limitations History of Present Illness: Patient is a 49-year-old female presents to ED today for evaluation of a left foot and ankle injury that she sustained yesterday. Patient states she was washing her camper trailer when she accidentally slipped and fell and injured the extremity. She states she is minimally able to bear weight. She has been treating at home with Tylenol without much relief. She has no other injuries or complaints at this time. complaint: ankle injury and foot injury Onset (ago): day(s) (yesterday) Injury: Left: ankle and foot Place: home Severity: moderate Relieving factors: immobilization Exacerbating factors: weight bearing, movement and palpation Context: fall Associated symptoms: Reports no associated symptoms Other symptoms: none Related Data Home Medications ?Medication ?Instructions ?Recorded ?Confirmed aspirin 81 mg tablet,delayed 81 mg PO DAILY 09/20/22 0 12/14/24 release cetirizine 10 mg tablet 10 mg PO DAILY PRN 09/20/22 12/14/24 insulin glargine 100 unit/mL (3 40 unit SUBCUT .COMPLE X 06/10/24 12/14/24 mL) subcutaneous pen (Lantus Solostar U-100 Insulin) blood-glucose meter,continuous 09/03/24 12/14/24 [Dexcom G7 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 Cleaning 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 Helper] Previous Rx's ?Medication ?Instructions ?Recorded diphenhydramine HCl 25 mg capsule 25 mg PO Q6H PRN all ergic reaction 01/14/23 (Benadryl) #30 caps ipratropium 0.5 mg-albuterol 3 mg 3 ml inhalation BID #180 mL 04/24/23 (2.5 mg base)/3 mL nebulization soln varenicline tartrate 1 mg tablet 1 mg PO BID #60 tabs 10/31/23 alcohol swabs 1 pad topical DIRECTED #2 00 ea 01/28/24 blood-glucose,lean coach,cont #1 ea 01/28/24 (Dexcom G7 Dry Cleaning 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 Helper) pen needle, diabetic 30 gauge x #100 ea 01/28/2411/27 (Pen Needle) blood-glucose meter (OneTouch #1 ea 02/26/24 Ultra2 Meter) mupirocin 2 % topical ointment 1 applic topical TID #2 2 grams 05/09/24 varenicline tartrate 0.5 mg (11)-1 See Rx Instructions PO PER PKG DIR 05/14/24 mg (42) tablets in a dose pack #53 ea (Chantix Starting Month Box) sacubitril 97 mg-valsartan 103 mg 1 tab PO BID #180 ta bs 05/18/24 tablet ondansetron 4 mg disintegrating 4 mg PO Q8H PRN nausea and 08/06/24 tablet vomiting #15 tabs albuterol sulfate 90 mcg/actuation 2 inh inhalation Q4 H PRN shortness 09/09/24 aerosol inhaler of breath or wheezing #6.7 g kam fluconazole 150 mg tablet 150 mg PO Q3D 2 doses #2 tab s 09/09/24 auto CPAP 10-14 cm mmHg setting #1 ea 09/14/24 with mask, tubing and supplies metoprolol tartrate 25 mg tablet 37.5 mg (1.5 x 25 mg) PO BID 30 09/14/24 days #90 tabs insulin pump cart,auto,BT,G6/7 #5 ea 09/21/24 (Omnipod 5 G6-G7 Pods (Gen 5) subcutaneous cartridge) atorvastatin 40 mg tablet See Rx Instructions .Route 0 09/23/24 .COMPLEX #90 tabs fluconazole 150 mg tablet 150 mg PO Q3D 2 doses #2 tab s 10/01/24 blood-glucose sensor (Dexcom G7 #1 ea 10/12/24 Sensor device) clopidogrel 75 mg tablet 75 mg PO DAILY #90 tabs 10/13 02/05 cyclobenzaprine 5 mg tablet 5 mg PO TID PRN muscle spa sm #30 11/10/24 tabs insulin lispro 100 unit/mL 18 unit (0.18 mL) SUBCUT TI D #10 mL 12/09/24 subcutaneous solution (Humalog U-100 Insulin) amoxicillin 500 mg tablet 500 mg PO BID #14 tabs 12/14 fluconazole 150 mg tablet 150 mg PO Q3D 2 doses #2 tab s 12/14/24 insulin syringe-needle U-100 1 mL #100 ea 12/14/24 30 gauge x 1/2 insulin pump cartridge,auto #1 ea 12/15/24 dose,BT,G6/G7 with controller subcutaneous (Omnipod 5 G6-G7 Intro Kit(Gen 5) subcutaneous cartridge and controller) fluticasone propionate 50 2 spray intranasal DAILY #16 grams 12/31/24 mcg/actuation nasal spray,suspension (Flonase Allergy Relief) hydrocodone 5 mg-acetaminophen 325 1 tab PO Q6H PRN pa in #14 tabs 01/02/25 mg tablet Allergies Allergy/AdvReac Type Severity Reaction Status Date / Time chocolate Allergy Mild ALGY-Hives Verified 12/14/24 11:34 pseudoephedrine (From Allergy Mild Elevated Verified 12/14/24 11:34 Sudafed) Heartrate bee venom protein (honey bee) Allergy Unknown Verified 12/14/24 11:34 Review of Systems Musc: Reports: extremity pain (L foot), extremity swelling (L foot) and joint pain (L ankle); Denies: joint swelling Neuro: Denies: numbness in extremities or sensory changes PFSH ED PFSH: Medical History Systolic CHF with reduced left ventricular function, NYHA class 2 PAD (peripheral artery disease) Nicotine dependence, cigarettes, with unspecified nicotine-induced disorders Diabetes, polyneuropathy COPD (chronic obstructive pulmonary disease) Social History Smoking and tobacco/nicotine status: current every day tobacco/nicotine user cigarettes Packs smoked per day: 1 Second hand smoke exposure: No Alcohol intake: never Substance/Drug Use: never Adopted: No Caregiver/support person: No Lives independently: Yes Housing: House Female Reproductive History: Spontaneous abortions: No Physical Exam Const: COMMON NORMALS: no acute distress, average body habitus, no limitations, alert and well nourished GENERAL APPEARANCE: cooperative and anxious (states she doesn't like hospitals) Extremity: COMMON NORMALS: capillary refill normal GENERAL: Yes normal exam except as noted LEFT LOWER EXTREMITY: Yes ankle joint (mild tenderness throughout ankle w/o deformity) Left ankle: Yes neurovascular exam (normal) and Yes foot & digits (previous great toe amputation; TTP/edema proximal dorsal foot) Left foot and digits: Yes neurovascular exam (normal) Neuro: COMMON NORMALS: moves all extremities, no focal motor deficits and no sensory deficits noted SENSORIUM/ORIENTATION: Yes alert Course Vital Signs: Vital signs: Vital Signs Temperature 98.1 F 01/02/25 19:25 Pulse Rate 80 01/02/25 19:25 Respiratory Rate 17 01/02/25 19:25 Blood Pressure 112/76 01/02/25 19:25 Pulse Oximetry 96 01/02/25 19:25 Oxygen Delivery Me thod Room Air 01/02/25 19:25 MDM - Extremity Injury (Lower) Medical Decision Making XR of the left foot and ankle obtained showing a left fifth metatarsal fracture. Patient will be placed in a splint. Will give crutches. Will have her follow- up with podiatry. Medical Records I reviewed the patient's medical records. XR interpretation done by ED provider, pending radiology final review Discharge Plan Discharge Patient Disposition: Home Clinical Impression: Closed nondisplaced fracture of fifth left metatarsal bone Condition: Stable Prescriptions: New hydrocodone-acetaminophen 5-325 mg tablet 1 tab PO Q6H PRN (Reason: pain) Qty: 14 0RF No Action cetirizine 10 mg tablet 10 mg PO DAILY PRN aspirin 81 mg tablet,delayed release (DR/EC) 81 mg PO DAILY ipratropium-albuterol 0.5 mg-3 mg(2.5 mg base)/3 mL solution for nebulization 3 ml inhalation BID Qty: 180 1RF varenicline tartrate 1 mg tablet 1 mg PO BID Qty: 60 2RF (DME) Dexcom G7 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 Cleaning 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 Helper Misc See Rx Instructions .Route Qty: 1 0RF Rx Instructions: As directed alcohol swabs Pads, Medicated 1 pad topical DIRECTED Qty: 200 2RF Rx Instructions: Use as directed to clean skin prior to finger stick or medication injection (DME) pen needle, diabetic [Pen Needle] 30 gauge x 5/16 needle See Rx Instructions .MEDSUPPLY Qty: 100 2RF Rx Instructions: Use as directed for insulin administration varenicline tartrate [Chantix Starting Month Box] 0.5 mg (11)- 1 mg (42) tablets,dose pack See Rx Instructions PO PER PKG DIR Qty: 53 0RF Rx Instructions: PO PER PKG DIR mupirocin 2 % ointment 1 applic topical TID Qty: 22 0RF insulin glargine [Lantus Solostar U-100 Insulin] 100 unit/mL (3 mL) insulin pen 40 unit SUBCUT .COMPLEX Rx Instructions: 40 units subcutaneously; ondansetron 4 mg tablet,disintegrating 4 mg PO Q8H PRN (Reason: nausea and vomiting) Qty: 15 0RF fluconazole 150 mg tablet 150 mg PO Q3D 0 Days Qty: 2 0RF amoxicillin 500 mg tablet 500 mg PO BID Qty: 14 0RF (DME) insulin syringe-needle U-100 1 mL 30 gauge x 1/2 syringe See Rx Instructions .MEDSUPPLY Qty: 100 12RF Rx Instructions: Use as directed for insulin administration. 3 times daily cyclobenzaprine 5 mg tablet 5 mg PO TID PRN (Reason: muscle spasm) Qty: 30 0RF (DME) blood-glucose meter,continuous [PercSys G7 Dry Cleaning 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 Helper] .Route fluconazole 150 mg tablet 150 mg PO Q3D 0 Days Qty: 2 0RF albuterol sulfate 90 mcg/actuation HFA aerosol inhaler 2 inh inhalation Q4H PRN (Reason: shortness of breath or wheezing) Qty: 6.7 0RF insulin lispro [Humalog U-100 Insulin] 100 unit/mL solution 18 unit SUBCUT TID Qty: 10 4RF fluconazole 150 mg tablet 150 mg PO Q3D 0 Days Qty: 2 1RF Rx Instructions: may repeat second dose 72 hrs after first dose if symptoms persist (DME) blood-glucose meter [Mind[employer] Global[employer] Ultra2 Meter] Misc See Rx Instructions .ROUTE .COMPLEX Qty: 1 0RF Dose Instruction: USE TO CHECK BLOOD SUGAR LEVELS 4 TIMES A DAY Rx Instructions: USE TO CHECK BLOOD SUGAR LEVELS 4 TIMES A DAY sacubitril-valsartan 97-103 mg tablet 1 tab PO BID Qty: 180 3RF metoprolol tartrate 25 mg tablet 37.5 mg PO BID 30 Days Qty: 90 3RF (DME) auto CPAP 10-14 cm mmHg setting with mask, tubing and supplies See Rx Instructions .ROUTE .MEDSUPPLY Qty: 1 0RF Rx Instructions: As directed (DME) Omnipod 5 G6-G7 Pods (Gen 5) Cartridge See Rx Instructions .Route Qty: 5 0RF Rx Instructions: As directed atorvastatin 40 mg tablet See Rx Instructions .ROUTE .COMPLEX Qty: 90 1RF Dose Instruction: Take 1 tablet by mouth once daily Rx Instructions: Take 1 tablet by mouth once daily (DME) Dexcom G7 Sensor Device See Rx Instructions .Route Qty: 1 5RF Rx Instructions: As directed clopidogrel 75 mg tablet 75 mg PO DAILY Qty: 90 1RF (DME) Omnipod 5 G6-G7 Intro Kt(Gen5) Cartridge See Rx Instructions .Route Qty: 1 0RF Rx Instructions: As directed fluticasone propionate [Flonase Allergy Relief] 50 mcg/actuation spray,suspension 2 spray intranasal DAILY Qty: 16 0RF Rx Instructions: administer into each nostril Benadryl 25 mg capsule 25 mg PO Q6H PRN (Reason: allergic reaction) Qty: 30 0RF Discharge Orders: Discharge ED (Routine); Ordered 01/02/25 Ordered By: Tabitha Summers Referrals: Sukhjinder Benoit MD [Primary Care Provider, Family Practice] Patient Instructions: Fractures - Metatarsal, Opioid Safety, Pain Management Activity Restrictions/Additional Instructions: As we discussed, you need to stay in your splint at all times until follow-up with podiatry. No weightbearing until you see them. Case management should contact you next week to schedule this follow-up appointment. You may use the prescribed pain medications sparingly as needed for significant discomfort. Print Language: Occitan Coding Level of Care Code ED Microbiology Technologist for Tyron Sheffield
[2025-01-02 20:22] VITALS: RESP 17
[2025-01-02] MEDS: morphine 4 mg/mL SDV 1 mL IM (20:22)
[2025-01-02] MEDS: ondansetron 2 mg/ML SDV 2 mL 4 MG IM (20:23)
[2025-01-02 20:58] VITALS: BP 135/81; PULSE 81; RESP 18; TEMP 36.7; O2SAT 98
--- NOTE | 2025-01-02 21:00 | PC.NURSE ---
crutches given to patient with teaching performed and return demonstration . posterior leg splint placed to left lower extremity using approx 34 in of orthoglass and 4 x3inch belem wrap. pt tolerated procedure well with no difficulties. pt in no obvious distress.
--- NOTE | 2025-01-04 08:41 | DCPLANNER ---
Message sent to podiatry for follow up-XR of the left foot and ankle obtained showing a left fifth metatarsal fracture. Patient will be placed in a splint. Will give crutches. Will have her follow-up with podiatry.
== END 2025-01-02 21:01 | disposition home or self-care (01) ==
PROVIDERS: Emergency Provider Physician Assistant; PCP Family Medicine
DX: S92.355A Nondisplaced fracture of fifth metatarsal bone, left foot, initial encounter for closed fracture (principal); Z79.82 Long term (current) use of aspirin; Z79.4 Long term (current) use of insulin; Z79.02 Long term (current) use of antithrombotics/antiplatelets; W01.0XXA Fall on same level from slipping, tripping and stumbling without subsequent striking against object, initial encounter
CPT/HCPCS: 29515; 73610; 73630; 96372; 99284; J2270; J2405

== ENCOUNTER → 2025-01-04 15:04 | Outpatient (BNVA) | payer MEDICAID, SELFPAY | PROVIDERS: PCP Family Medicine; Visit Provider Podiatrist Foot & Ankle Surgery | DX: S92.352A Displaced fracture of fifth metatarsal bone, left foot, initial encounter for closed fracture (principal); E11.65 Type 2 diabetes mellitus with hyperglycemia; W01.0XXA Fall on same level from slipping, tripping and stumbling without subsequent striking against object, initial encounter; Z79.4 Long term (current) use of insulin | CPT/HCPCS: 28470; 99204 ==

== ENCOUNTER → 2025-01-13 07:47 | Outpatient (BNVA) | payer MEDICAID, SELFPAY | PROVIDERS: PCP Family Medicine; Visit Provider Internal Medicine | DX: E11.9 Type 2 diabetes mellitus without complications (principal); E78.2 Mixed hyperlipidemia; Z79.4 Long term (current) use of insulin | CPT/HCPCS: 99214 ==

== ENCOUNTER → 2025-01-25 13:35 | Outpatient (BNVA) | payer MEDICAID, SELFPAY | PROVIDERS: PCP Family Medicine; Visit Provider Podiatrist Foot & Ankle Surgery | DX: S92.352A Displaced fracture of fifth metatarsal bone, left foot, initial encounter for closed fracture (principal); E11.65 Type 2 diabetes mellitus with hyperglycemia; X58.XXXA Exposure to other specified factors, initial encounter; Z79.4 Long term (current) use of insulin | CPT/HCPCS: 73630; 99024 ==

== ENCOUNTER → 2025-02-15 14:22 | Outpatient (BNVA) | payer MEDICAID, SELFPAY | PROVIDERS: PCP Family Medicine; Visit Provider Podiatrist Foot & Ankle Surgery | DX: S92.352A Displaced fracture of fifth metatarsal bone, left foot, initial encounter for closed fracture (principal); E11.65 Type 2 diabetes mellitus with hyperglycemia; Z79.4 Long term (current) use of insulin; X58.XXXA Exposure to other specified factors, initial encounter | CPT/HCPCS: 73630; 99213 ==

== ENCOUNTER → 2025-02-20 13:39 | Outpatient (BNVA) | payer MEDICAID, SELFPAY | PROVIDERS: PCP Family Medicine; Visit Provider Emergency Medicine | DX: R39.9 Unspecified symptoms and signs involving the genitourinary system (principal) | CPT/HCPCS: 81000 ==

== ENCOUNTER → 2025-03-21 18:37 | Outpatient (BNVA) | payer BC, SELFPAY | PROVIDERS: PCP Family Medicine; Visit Provider Nurse Practitioner | DX: J02.9 Acute pharyngitis, unspecified (principal) | CPT/HCPCS: 87880 ==

== ENCOUNTER → 2025-04-05 08:29 | Outpatient (BNVA) | payer MEDICAID, SELFPAY | PROVIDERS: PCP Family Medicine; Visit Provider Specialist | DX: M25.511 Pain in right shoulder (principal); M75.81 Other shoulder lesions, right shoulder | CPT/HCPCS: 73030; 99204 ==

== ENCOUNTER 2025-04-15 09:49 | Outpatient (CLI) | payer MEDICAID, SELFPAY | END 2025-04-15 09:50 | PROVIDERS: PCP Family Medicine; Visit Provider Internal Medicine | DX: E11.9 Type 2 diabetes mellitus without complications (principal); Z79.4 Long term (current) use of insulin; E78.2 Mixed hyperlipidemia | CPT/HCPCS: 99214 ==

== ENCOUNTER 2025-04-17 18:42 | Emergency (ER) | payer MEDICAID, SELFPAY ==
--- OUTSIDE RECORDS SUMMARY | 2022-08-21 05:00 | XMS_ITS | Continuity of Care Document ---
Author Organization [facility] Address [address] [place] [address] Phone Care Team Providers Care Director Marketing Communications Name Role Phone Berenice Ochoa APN, APN Unavailable Unavai lable Allergies, Adverse Reactions, Alerts Substance Reaction Status Criticality PENICILLIN Active No Information Medications Medication Instructions Dosage Effective Dates (start - stop) Status Comments metoprolol tartrate 25 mg tablet take 1 tablet by oral route 2 times every day 25 MG - Active insulin aspar prot-insulin aspart 100 unit/mL (70-30) subcutaneous pen inject by subcutaneous route as per insulin protocol 0.00 - Active metformin ER 500 mg tablet,extended release 24 hr take 2 tablet by oral route 2 times every day with the evening meal 1000 MG - Active pantoprazole 40 mg tablet,delayed release take 1 tablet by oral route every day 40 MG - Active gabapentin 300 mg capsule take 1 capsule by oral route 3 times every day 300 MG - Active Tylenol PM Extra Strength 25 mg-500 mg tablet take 2 tablet by oral route every day at bedtime 2.00 tablet - Active lisinopril 2.5 mg tablet take 1 tablet by oral route every day 2.5 MG - Active nystatin 100,000 unit/gram topical powder apply by topical route 2 times every day to the affected area(s) x 5 days - Active Lantus Solostar U-100 Insulin 100 unit/mL (3 mL) subcutaneous pen inject by subcutaneous route as per insulin protocol 0.00 - Active clopidogrel 75 mg tablet take 1 tablet by oral route every day 75 MG - Active cetirizine 10 mg tablet take 1 tablet by oral route every day 10 MG - Active atorvastatin 40 mg tablet take 1 tablet by oral route every day 40 MG - Active aspirin 81 mg tablet,delayed release take 1 tablet by oral route every day 81 MG - Active albuterol sulfate concentrate 2.5 mg/0.5 mL solution for nebulization inhale 0.5 milliliter by nebulization route 3 times every day 2.5 MG - Active hydrocodone 5 mg-acetaminophen 325 mg tablet take 2 tablet by oral route every 6 hours as needed for pain as needed 2 tablet - Active sodium chloride 0.9 % injection solution inject 1 g into the vein daily - No Longer Active Novolog Flexpen U-100 Insulin aspart 100 unit/mL (3 mL) subcutaneous inject by subcutaneous route per prescriber's instructions. Insulin dosing requires individualization. 0.00 - No Longer Active Procedures Procedure Date Office Visit Level 4 ACP Disc And Doc, No Surrogate Documente d [facility] W/CORS W/WO LV Stent, W/WO PTCA Stent W/WO PTCA Left Heart Cath With Cors W/WO LV Conscious/Moderate Sedation, Initial 15 Min. Transitional Care - 7 Day FTF EKG With Interp And Report Hospital Visit Level 3, Shared Services Hospital Visit Level 3, Shared Services, NPP Hospital Visit Level 3, Shared Services Hospital Visit Level 3, Shared Services, NPP Hospital Visit Level 2 Hospital Visit Level 2, Shared Services Hospital Visit Level 2, Shared Services, NPP Hospital Visit Level 2 Hospital Visit Level 3 Hospital Visit Level 3, Shared Services Hospital Visit Level 3, Shared Services, NPP Hospital Visit Level 3, Shared Services Hospital Visit Level 3, Shared Services, NPP IO-Echo 2D Limited Hospital Visit Level 2, Shared Services Hospital Visit Level 2, Shared Services, NPP V2 V3 Cons4 V3 V3 V3 V3 Hospital Visit Level 3, Shared Services Hospital Visit Level 3, Shared Services, NPP Hospital Visit Level 3, Shared Services Hospital Visit Level 3, Shared Services, NPP Hospital Visit Level 3, Shared Services Hospital Visit Level 3, Shared Services, NPP Admit Level 3, Shared Services Admit Level 3, Shared Services 22 Echo, Complete, Interp IO-Holter 24 Hr Admit Level 2 IO-Stress Intepretation, Hospital IO-Stress Supervision, Hospital 007 Advance Directives Directive Yes / No Effective Date File Name Other Directive No N/A N/A WARNING:The information contained in this section is historical and is provided for information only and does not constitute a legal document or any assurance that the information is still accurate. Please verify the information with the vidal of the legal document before using it for clinical purposes. Encounters Encounter Description Practice Location Reason(s) For Visit Diagnoses Date Provider Providers Copied on Encounter Office Visit Level 4 Cardiovascul [facility] Medicine [facility], [address], [place], [address], [place] tel:[phone] Solomon CVM Follow Up Visit (chief complaint) Cardiovasc ular Review (chief complaint) History of cardiac arrestEssent ial (primary) hypertension Type 2 diabetes mellitus without complication , with long-term current use of insulinCoron melba artery disease involving napaimute coronary artery of napaimute heart without angina pectorisToba manager strategy & account abuseIschemi c cardiomyopat hy Fe 3 Don Ng. [facility], [address], [place], [place], [id number], [place]. tel:[phone] Referring Provider: Berenice Ochoa APN, [facility] [address], [place], [address]. tel:[phone] [facility], [address], [place], [address], [place] tel:[phone] Solomon CVM No Information 3 Zach CASTILLO Alejandro. [facility], [address], [place], [place], [id number], [place]. tel:[phone] Referring Provider: Alejandro Serrano MD, [facility] [address], [place], [address]. tel:[phone] Transitional Care - 7 Day FTF [facility], [address], [place], [address], [place] tel:[phone] Hulett CVM Follow Up Visit (chief complaint) s/p cardiac arrest (chief complaint) Hypertensi on (chief complaint) Diabetes Mellitus (chief complaint) Cardiovasc ular Review (chief complaint) History of cardiac arrestEssent ial (primary) hypertension Type 2 diabetes mellitus without complication , with long-term current use of insulinLong term (current) use of insulin Jun-2 2 Zach CASTILLO Alejandro. [facility], [address], [place], [place], [address], [place]. tel:[phone] Referring Provider: Alejandro Serrano MD, [facility] [address], [place], [address]. tel:[phone] Hospital Visit Level 3, Shared Services Cardiovascul ar Medicine [facility], [address], [place], [address], [place] tel:[phone] Solomon CVM No Information Dec-1 2 Yvonne Lofton. [facility], [address], [place], [place], [id number], [place]. tel:[phone] Referring Provider: Cortney CASTILLO V, [facility] [address], [place], [address]. tel:[phone] Hospital Visit Level 2 Cardiovascul ar Medicine [facility], [address], [place], [address], [place] tel:[phone] Hulett CVM No Information Jun-0 2 Zach Allen. [facility], [address], [place], [place], [address], [place]. tel:[phone] Referring Provider: Alejandro Serrano MD, [facility] [address], [place], [address]. tel:[phone] Hospital Visit Level 3 Cardiovascul ar Medicine [facility], [address], [place], [address], [place] tel:[phone] Solomon CVM No Information Jun-0 2 Yvonne Lofton. [facility], [address], [place], [place], [address], [place]. tel:[phone] Referring Provider: Gregor Marti MD, [facility] [address], [place], [address]. tel:[phone] Cardiovascul ar Medicine [facility], [address], [place], [address], [place] tel:[phone] Hulett CVM No Information Dec-0 2 Figueroa Bundy. [facility], [address], [place], [place], [address], [place]. tel:[phone] Referring Provider: Kirsty Russell APN, [facility] [address], [place], [address]. tel:[phone] Hospital Visit Level 2, Shared Services Cardiovascul ar Medicine [facility], [address], [place], [address], [place] tel:[phone] Solomon CVM No Information Dec-0 2 Yvonne Lofton. [facility], [address], [place], [place], [id number], [place]. tel:[phone] Referring Provider: Gregor Marti MD, [facility] [address], [place], [address]. tel:[phone] V2 Cardiovascul ar Medicine [facility], [address], [place], [address], [place] tel:[phone] Hulett CVM No Information Dec-0 2 Rony Yañez. [facility], [address], [place], [place], [id number], [place]. tel:[phone] Referring Provider: Cortney CASTILLO V, [facility] [address], [place], [address]. tel:[phone] Cons4 Cardiov[facility]cul [facility] Medicine [facility], [address], [place], [address], [place] tel:[phone] Hulett CVM No Information Dec-0 2 Yvonne Lofton. [facility], [address], [place], [place], [address], [place]. tel:[phone] Referring Provider: Cortney CASTILLO V, [facility] [address], [place], [address]. tel:[phone] Admit Level 3, Shared Services Cardiovascul ar Medicine [facility], [address], [address], [place] tel:[phone] Solomon CVM No Information 2 Zach Allen. [facility] , [address], [place], [place], [address], [place]. tel:[phone] Referring Provider: Jean Carlos Bernabe, [address] [place] [address], [address]. tel:[phone] Cardiovascul ar Medicine [facility], [address] [facility] [address] [place] [address], [address], [place] tel:[phone] Solomon CVM No Information 2 Zach CASTILLO Alejandro. [facility] , [address], [place], [address], [place]. tel:[phone] Referring Provider: Mamta Cunningham, [address] [place] [address], [address]. tel:[phone] Cardiovascul ar Medicine [facility], [address] [facility] [address] [place] [address], [address], [place] tel:[phone] Roma CVM No Information 5 Gracy Dykes. [facility] , [address], [address], [place]. tel:[phone] Referring Provider: Brad Calvo, [facility] [address] [place] [address], [address]. tel:[phone] Admit Level 2 Cardiovascul ar Medicine [facility], [address] [facility] [address] [place] [address], [address], [place] tel:[phone] Roma CVM No Information 2 Shane Antonio. [facility] , [address], [address], [place]. tel:[phone] Referring Provider: Marisela Talbot, [facility] [address], [place], [address]. tel:[phone] [facility], [address], [place], [address], [place] tel:[phone] Solomon CVM No Information 0-200 7 Verenice Cabrera . [facility], [address], [place], [place], [address], [place]. tel:[phone] Referring Provider: DRU Jennings. Family History Family Member Type Diagnosis Age At Onset No Information Payers Payer name Insurance type Covered green party ID [place](s) [employer] [place] [id number] Social History Type Description Quantity Date Captured Comments Alcohol Use Details No Caffeine Use Details soda and coffee 1 cup per day Tobacco Use Status Occasional cigarette smoker Smoking Status Light tobacco smoker Smoking Tobacco Use Details Cigarette: Age Started: 18 Cigarette: 6 Cigarettes per day Sex Female Vital Signs Date / Time: Height Weight BMI Pulse Rate Blood Pressure Temperature Respiratory Rate Body Surface Area Head Circumference Head Circ. Percentile Wt./Torsten. Percentile BMI percentile Pulse Ox Inhaled Ox 10:19 AM 62.00 in 69.400 kg (153.00 lbs) 27.9 8 kg/m eter (2) 80 /min 104/70 mm[Hg] 12 /min 1.74 meter(2) Chief Complaint And Reason For Visit From encounter dated '08/21/2022 10:00'. Follow Up Visit (chief complaint). Description: Pt presents with daughter s/p cardiac catheterization. Findings of severe stenosis in distal RCA s/p PCI with ANURADHA. Hx: Cardiac arrest on 06/13/22 likely secondary to acute SD but was too critically ill with metabolic acidosis and sepsis so cardiac cath was deferred. EF initially was 40-45% but normalized per echo on 06/18/22. Today reports mild CHAVEZ unchanged over several years. Chest tenderness where they broke my ribs. but no exertional symptoms. Cardiovascular Review (chief complaint). Description: The patient has symptoms suggestive of musculoskeletal pain. Ms. Mera has CHAVEZ. Ms. Mera has not had palpitations, syncope or near syncope. She denies claudication. There is no discoloration or ulceration of the lower extremities. She has had no TIA or stroke-like symptoms. The patient has no symptoms attributable to valvular heart disease. Reason For Referral Reason For Referral No Information Plan Of Treatment Date Type Action Status Goal Tobacco cessation counseling completed Goal Tobacco cessation counseling completed Goal Tobacco cessation counseling completed History Of Present Illness Encounter Date Complaint History Of Prese nt Illness Follow Up Visit Pt presents with daughter s/p cardiac catheterization. Findings of severe stenosis in distal RCA s/p PCI with ANURADHA. Hx: Cardiac arrest on 06/13/22 likely secondary to acute SD but was too critically ill with metabolic acidosis and sepsis so cardiac cath was deferred. EF initially was 40-45% but normalized per echo on 06/18/22. Today reports mild CHAVEZ unchanged over several years. Chest tenderness "where they broke my ribs. but no exertional symptoms. Cardiovascular Review The patien t has symptoms suggestive of musculoskeletal pain. Ms. Mera has CHAVEZ. Ms. Mera has not had palpitations, syncope or near syncope. She denies claudication. There is no discoloration or ulceration of the lower extremities. She has had no TIA or stroke-like symptoms. The patient has no symptoms attributable to valvular heart disease. s/p cardiac arrest Hypertension Diabetes Mellitus Follow Up Visit recent hospital visit for cardiac arrest. Possible due to acute SD, echo showed some regional wall motion abnormality. However patient was critically ill with metabolic problems so angiogram was deferred. Currently does not have any significant chest pain. Cardiovascular Review Ms. Ivone dumont has not had palpitations, syncope or near syncope. She denies claudication. There is no discoloration or ulceration of the lower extremities. She has had no TIA or stroke-like symptoms. The patient has no symptoms attributable to valvular heart disease. Functional Status Date Functional Assessmen t No Information Instructions Date Instruction Additional Infor luh PCP Wellness Visit PCP Wellness Visit Assessments Type Assessment Date No Information Patient Care Teams Name Effective Dates (start - stop) Status Members No Information
[2025-04-17 18:52] VITALS: BP 95/60; PULSE 98; RESP 18; TEMP 36.8; O2SAT 96
--- NOTE | 2025-04-17 19:47 | ED_ITS ---
HPI - Skin/Abscess/Foreign Bdy 2 General: Chief complaint: Skin/Abscess/Foreign Body Stated complaint: LT leg on groin big bump Time Seen by Provider: 04/17/25 19:14 History of Present Illness: Patient is 49-year-old female with insulin-dependent DM that presented to the ED due to a bump in her left groin. This appeared today. She has had the same issue with her groin in the past, and an abscess, and has come back. 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 She did not have any pain, redness until a day. She had a large amount of redness, pain, induration to this area today. Associated symptoms: Deny chills, fever(s), nausea or vomiting Related Data Home Medications ?Medication ?Instructions ?Recorded ?Confirmed aspirin 81 mg tablet,delayed 81 mg PO DAILY 09/20/22 1 release insulin glargine 100 unit/mL (3 40 unit SUBCUT .COMPLE X 06/10/24 04/15/25 mL) subcutaneous pen (Lantus Solostar U-100 Insulin) blood-glucose meter,continuous 09/03/24 04/15/25 [Dexcom G7 Survey Research Manager] Previous Rx's ?Medication ?Instructions ?Recorded ipratropium 0.5 mg-albuterol 3 mg 3 ml inhalation BID #180 mL 04/24/23 (2.5 mg base)/3 mL nebulization soln varenicline tartrate 1 mg tablet 1 mg PO BID #60 tabs 10/31/23 alcohol swabs 1 pad topical DIRECTED #2 00 ea 01/28/24 blood-glucose,railcar foreman,cont #1 ea 01/28/24 (Dexcom G7 Survey Research Manager) pen needle, diabetic 30 gauge x #100 ea 01/28/2411/27 (Pen Needle) blood-glucose meter (OneTouch #1 ea 02/26/24 Ultra2 Meter) mupirocin 2 % topical ointment 1 applic topical TID #2 2 grams 05/09/24 varenicline tartrate 0.5 mg (11)-1 See Rx Instructions PO PER PKG DIR 05/14/24 mg (42) tablets in a dose pack #53 ea (Chantix Starting Month Box) ondansetron 4 mg disintegrating 4 mg PO Q8H PRN nausea and 08/06/24 tablet vomiting #15 tabs auto CPAP 10-14 cm mmHg setting #1 ea 09/14/24 with mask, tubing and supplies cyclobenzaprine 5 mg tablet 5 mg PO TID PRN muscle spa sm #30 11/10/24 tabs insulin syringe-needle U-100 1 mL #100 ea 12/14/24 30 gauge x 1/2 insulin pump cartridge,auto #1 ea 12/15/24 dose,BT,G6/G7 with controller subcutaneous (Omnipod 5 G6-G7 Intro Kit(Gen 5) subcutaneous cartridge and controller) hydrocodone 5 mg-acetaminophen 325 1 tab PO Q6H PRN pa in #14 tabs 01/02/25 mg tablet Knee Scooter #1 ea 01/04/25 Left Cam Boot #1 ea 01/04/25 blood-glucose sensor (Dexcom G7 #9 ea 01/14/25 Sensor device) insulin pump cart,auto,BT,G6/7 #30 ea 02/01/25 (Omnipod 5 G6-G7 Pods (Gen 5) subcutaneous cartridge) clopidogrel 75 mg tablet 75 mg PO DAILY #90 tabs 01/13 03/08 metoprolol tartrate 25 mg tablet 37.5 mg (1.5 x 25 mg) PO BID 30 02/08/25 days #90 tabs sacubitril 97 mg-valsartan 103 mg 1 tab PO BID #180 ta bs 02/08/25 tablet mupirocin 2 % topical ointment 1 applic topical BID #2 2 grams 02/20/25 ([facility]) atorvastatin 40 mg tablet See Rx Instructions .Route 0 03/19/25 .COMPLEX #90 tabs albuterol sulfate 90 mcg/actuation 2 inh inhalation Q4 H PRN shortness 03/29/25 aerosol inhaler of breath or wheezing #6.7 g kam insulin lispro 100 unit/mL See Rx Instructions .Route 04/01/25 subcutaneous solution .COMPLEX #10 mL cetirizine 10 mg tablet 10 mg PO DAILY PRN allergy 0 04/07/25 symptoms #30 tabs diphenhydramine HCl 25 mg capsule 25 mg PO .q hs PRN d rainage #30 04/07/25 (Benadryl) caps fluticasone propionate 50 2 spray intranasal DAILY #16 grams 04/07/25 mcg/actuation nasal spray,suspension (Flonase Allergy Relief) tirzepatide 5 mg/0.5 mL 5 mg (0.5 mL) SUBCUT Q7D #2 mL 04/15/25 subcutaneous pen injector (Farideh) doxycycline hyclate 100 mg capsule 100 mg PO BID 10 da ys #20 caps 04/17/25 fluconazole 150 mg tablet 150 mg PO Q3D 2 doses #2 tab s 04/17/25 ketorolac 10 mg tablet 10 mg PO Q8H PRN pain 5 days #14 04/17/25 tabs methocarbamol 750 mg tablet 750 mg PO Q8H PRN muscle s pasm #30 04/17/25 tabs Allergies Allergy/AdvReac Type Severity Reaction Status Date / Time chocolate Allergy Mild ALGY-Hives Verified 04/07/25 09:33 pseudoephedrine (From Allergy Mild Elevated Verified 04/07/25 09:33 Sudafed) Heartrate bee venom protein (honey bee) Allergy Unknown Verified 04/07/25 09:33 Review of Systems 2 General: Reports: 10 or more systems reviewed and unremarkable except in HPI and below Const: Denies: fever(s) or chills Eyes: Denies: change in vision or blurry vision ENMT: Denies: throat pain or dry mouth Card: Denies: chest pain or palpitations Resp: Denies: dyspnea or non-productive cough GI: Denies: abdominal pain, nausea or vomiting : Denies: flank pain or difficulty voiding Musc: Denies: neck pain, back pain, extremity pain, extremity swelling, joint pain or joint swelling Skin/Breast: Reports: sores Neuro: Denies: headache(s), numbness in extremities or sensory changes PFSH ED 2 PFSH: Medical History (Updated 04/17/25 @ 19:49 by DENNYS Cardenas) Systolic CHF with reduced left ventricular function, NYHA class 2 PAD (peripheral artery disease) Nicotine dependence, cigarettes, with unspecified nicotine-induced disorders Diabetes, polyneuropathy COPD (chronic obstructive pulmonary disease) Social History Smoking and tobacco/nicotine status: never used tobacco/nicotine Second hand smoke exposure: No Alcohol intake: never Substance/Drug Use: never Adopted: No Caregiver/support person: No Lives independently: Yes Housing: House Female Reproductive History: Spontaneous abortions: No Physical Exam 2 Const: COMMON NORMALS: no acute distress, average body habitus and patient oriented x3 HENMT: COMMON NORMALS: normocephalic and atraumatic HEAD & SCALP: n ormocephalic and atraumatic Eye: COMMON NORMALS: Equal, round and reactive pupils present, EOMs intact bilaterally and conjunctivae normal CONJUNCTIVA: Yes conjunctivae normal P UPIL: Yes Equal, round and reactive pupils present Chest: COMMONS NORMALS: normal inspection of the chest and normal palpation of entire chest wall Resp: COMMON NORMALS: normal respiratory effort, No retractions and clear to auscultation bilaterally AUSCULTATION: clear to auscultation bilaterally Cardio: COMMON NORMALS: regular rate and regular rhythm RATE: regular rate RHYTHM: regular rhythm GI: COMMON NORMALS: Normal to inspection, nondistended, normoactive bowel sounds present, Soft to palpation, non-tender and No hepatosplenomegaly present PALPATION: Yes Soft to palpation and Yes No hepatosplenomegaly present : COMMON NORMALS: Yes no CVA tenderness BLADDER/KIDNEY EXAM: Yes no CVA tenderness Back/Pelvis: COMMON NORMALS: no CVA tenderness Extremity: NARRATIVE EXTREMITY EXAM: Redness surrounding left groin, induration, with surrounding redness. Neuro: COMMON NORMALS: patient oriented x3 Skin: SKIN IMAGES (FEMALE): 1. Induration, 3 cm, warmth, surrounding redness 2. Redness, warmth Procedures Abscess I/D Site: lower extremity Side (if applicable): left Sedation/analgesia: none Local Anesthetic: other anesthetic (Patient declined local anesthesia ) Technique: incised with #11 blade Amount of fluid expressed (mL): 30 Irrigation: Yes (120 ml) Packing used?: plain Complications: pain and bleeding Course 2 Vital Signs: Vital signs: Vital Signs Temperature 98.2 F 04/17/25 18:52 Pulse Rate 98 04/17/25 18:52 Respiratory Rate 18 04/17/25 18:52 Blood Pressure 95/60 04/17/25 18:52 Pulse Oximetry 96 04/17/25 18:52 Oxygen Delivery Me thod Room Air 04/17/25 18:52 MDM - Skin/Abscess/Foreign Bdy Medicial Decision Making Patient is a 49-year-old female with redness, induration to her left groin. This area was excised, and a large amount of abscess was drained. Given the large amount of abscess, surrounding redness, plain iodoform was packed to this area. Patient was instructed to repack this area, take antibiotics as prescribed. All of her questions were answered to her satisfaction. No radiology studies performed this visit Discharge Plan Discharge Patient Disposition: Home Clinical Impression: Abscess of groin, left Condition: Stable Prescriptions: New fluconazole 150 mg tablet 150 mg PO Q3D Qty: 2 0RF methocarbamol 750 mg tablet 750 mg PO Q8H PRN (Reason: muscle spasm) Qty: 30 0RF ketorolac 10 mg tablet 10 mg PO Q8H PRN (Reason: pain) 5 Days Qty: 14 0RF doxycycline hyclate 100 mg capsule 100 mg PO BID 10 Days Qty: 20 0RF No Action aspirin 81 mg tablet,delayed release (DR/EC) 81 mg PO DAILY ipratropium-albuterol 0.5 mg-3 mg(2.5 mg base)/3 mL solution for nebulization 3 ml inhalation BID Qty: 180 1RF varenicline tartrate 1 mg tablet 1 mg PO BID Qty: 60 2RF (DME) Dexcom G7 Survey Research Manager Misc See Rx Instructions .Route Qty: 1 0RF Rx Instructions: As directed alcohol swabs Pads, Medicated 1 pad topical DIRECTED Qty: 200 2RF Rx Instructions: Use as directed to clean skin prior to finger stick or medication injection (DME) pen needle, diabetic [Pen Needle] 30 gauge x 5/16 needle See Rx Instructions .MEDSUPPLY Qty: 100 2RF Rx Instructions: Use as directed for insulin administration varenicline tartrate [Chantix Starting Month Box] 0.5 mg (11)- 1 mg (42) tablets,dose pack See Rx Instructions PO PER PKG DIR Qty: 53 0RF Rx Instructions: PO PER PKG DIR mupirocin 2 % ointment 1 applic topical TID Qty: 22 0RF insulin glargine [Lantus Solostar U-100 Insulin] 100 unit/mL (3 mL) insulin pen 40 unit SUBCUT .COMPLEX Rx Instructions: 40 units subcutaneously; ondansetron 4 mg tablet,disintegrating 4 mg PO Q8H PRN (Reason: nausea and vomiting) Qty: 15 0RF (DME) insulin syringe-needle U-100 1 mL 30 gauge x 1/2 syringe See Rx Instructions .MEDSUPPLY Qty: 100 12RF Rx Instructions: Use as directed for insulin administration. 3 times daily cyclobenzaprine 5 mg tablet 5 mg PO TID PRN (Reason: muscle spasm) Qty: 30 0RF (DME) Left Cam Boot See Rx Instructions .Route .MEDSUPPLY Qty: 1 0RF Rx Instructions: As directed (DME) Knee Scooter See Rx Instructions .Route .MEDSUPPLY Qty: 1 0RF Rx Instructions: As directed Mounjaro 5 mg/0.5 mL pen injector 5 mg SUBCUT Q7D Qty: 2 0RF (DME) blood-glucose meter,continuous [Dexcom G7 Survey Research Manager] .Route mupirocin [Centany] 2 % ointment 1 applic topical BID Qty: 22 0RF Benadryl 25 mg capsule 25 mg PO .q hs PRN (Reason: drainage) Qty: 30 0RF cetirizine 10 mg tablet 10 mg PO DAILY PRN (Reason: allergy symptoms) Qty: 30 0RF fluticasone propionate [Flonase Allergy Relief] 50 mcg/actuation spray,suspension 2 spray intranasal DAILY Qty: 16 1RF Rx Instructions: administer into each nostril (DME) blood-glucose meter [OneTouch Ultra2 Meter] Misc See Rx Instructions .ROUTE .COMPLEX Qty: 1 0RF Dose Instruction: USE TO CHECK BLOOD SUGAR LEVELS 4 TIMES A DAY Rx Instructions: USE TO CHECK BLOOD SUGAR LEVELS 4 TIMES A DAY (DME) auto CPAP 10-14 cm mmHg setting with mask, tubing and supplies See Rx Instructions .ROUTE .MEDSUPPLY Qty: 1 0RF Rx Instructions: As directed (DME) Omnipod 5 G6-G7 Intro Kt(Gen5) Cartridge See Rx Instructions .Route Qty: 1 0RF Rx Instructions: As directed (DME) Dexcom G7 Sensor Device See Rx Instructions .ROUTE .COMPLEX Qty: 9 1RF Dose Instruction: USE DIRECTED Rx Instructions: USE DIRECTED (DME) Omnipod 5 G6-G7 Pods (Gen 5) Cartridge See Rx Instructions .ROUTE .COMPLEX Qty: 30 0RF Dose Instruction: USE DIRECTED Rx Instructions: USE DIRECTED clopidogrel 75 mg tablet 75 mg PO DAILY Qty: 90 1RF metoprolol tartrate 25 mg tablet 37.5 mg PO BID 30 Days Qty: 90 3RF sacubitril-valsartan 97-103 mg tablet 1 tab PO BID Qty: 180 3RF atorvastatin 40 mg tablet See Rx Instructions .ROUTE .COMPLEX Qty: 90 1RF Dose Instruction: Take 1 tablet by mouth once daily Rx Instructions: Take 1 tablet by mouth once daily albuterol sulfate 90 mcg/actuation HFA aerosol inhaler 2 inh inhalation Q4H PRN (Reason: shortness of breath or wheezing) Qty: 6.7 0RF insulin lispro 100 unit/mL solution See Rx Instructions .ROUTE .COMPLEX Qty: 10 0RF Dose Instruction: INJECT 18 UNITS SUBCUTANEOUSLY THREE TIMES DAILY Rx Instructions: INJECT 18 UNITS SUBCUTANEOUSLY THREE TIMES DAILY hydrocodone-acetaminophen 5-325 mg tablet 1 tab PO Q6H PRN (Reason: pain) Qty: 14 0RF Discharge Orders: Discharge ED (Routine); Ordered 04/17/25 Ordered By: Shelia Wheatley Referrals: Sukhjinder Benoit MD [Primary Care Provider, Family Practice] Discharge Diet: Usual diet and Diabetic Discharge Activity: Limit activity as instructed Patient Instructions: Abscess (ED), Opioid Safety, Pain Management, Patient Portal & [place] Instructions Activity Restrictions/Additional Instructions: - Pack area every day as able -Take antibiotics as prescribed - Utilize probiotic or active culture yogurt daily to avoid infectious diarrhea -Tylenol with the ketorolac can help with pain. - pHisoDerm or antibacterial Dial soap, wash daily - Change her towel daily *Return to ED if you have worsening symptoms, worsening redness, or fever greater than 100.4 ?F - Follow-up with your primary care physician to evaluate this area in your left groin. 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
[2025-04-17] MEDS: HYDROcodone-acetaminophen 10-325 mg Tablet 1 TAB PO (20:09)
[2025-04-17] MEDS: HYDROcodone-acetaminophen 10-325 mg Tablet 2 TAB PO (20:09)
[2025-04-17] MEDS: orphenadrine 30 mg/mL Inj 2 mL 60 MG IM (20:09)
== END 2025-04-17 20:18 | disposition home or self-care (01) ==
PROVIDERS: Emergency Provider Physician Assistant; PCP Family Medicine
DX: L02.214 Cutaneous abscess of groin (principal); Z79.82 Long term (current) use of aspirin; Z79.4 Long term (current) use of insulin; Z79.02 Long term (current) use of antithrombotics/antiplatelets; J44.9 Chronic obstructive pulmonary disease, unspecified; E11.42 Type 2 diabetes mellitus with diabetic polyneuropathy; I50.20 Unspecified systolic (congestive) heart failure
CPT/HCPCS: 10060; 96372; 99284; J1885; J2360; J9999

== ENCOUNTER 2025-04-20 15:07 | Outpatient (CLI) | payer MEDICAID, SELFPAY ==
--- NOTE | 2025-04-20 15:15 | MR_ITS ---
WS: [id number] MRI RIGHT SHOULDER HISTORY: right shoulder pain COMPARISON: RIGHT shoulder radiograph 04/05/2025 TECHNIQUE: Multiplanar sequences of the shoulder joint are submitted. Mild AC joint arthritis. Very slight narrowing of the AC joint. No subacromial or subdeltoid fluid collection. No subacromial impingement. No os acromiale. Normal position of the biceps tendon. Rotator cuff muscles are normal size. No atrophy or edema. No rotator cuff tear identified. No labral tear is identified. There is a very small amount of fluid adjacent to the subscapularis tendon and anterior labrum. No evidence for adhesive capsulitis. MR/MR shoulder RT wo con* [id number] IMPRESSION: 1. No rotator cuff tear is identified. 2. No muscle atrophy or edema. 3. Mild AC joint arthritis. 4. There is a small amount of fluid adjacent to the anterior labrum and the di stal subscapularis tendon. Source of the fluid is not apparent.
== END 2025-04-20 15:08 | disposition home or self-care (01) ==
LOC: RAD 15:08
PROVIDERS: PCP Family Medicine; Visit Provider Specialist
DX: M75.81 Other shoulder lesions, right shoulder (principal); M13.811 Other specified arthritis, right shoulder; M25.411 Effusion, right shoulder
CPT/HCPCS: 73221

== ENCOUNTER → 2025-06-03 10:27 | Outpatient (BNVA) | payer MEDICAID, SELFPAY | PROVIDERS: PCP Family Medicine; Visit Provider Internal Medicine Cardiovascular Disease | DX: R00.2 Palpitations (principal); I25.118 Atherosclerotic heart disease of native coronary artery with other forms of angina pectoris; I25.5 Ischemic cardiomyopathy; J44.9 Chronic obstructive pulmonary disease, unspecified; E11.65 Type 2 diabetes mellitus with hyperglycemia; Z79.4 Long term (current) use of insulin; E78.2 Mixed hyperlipidemia; I77.9 Disorder of arteries and arterioles, unspecified; F17.219 Nicotine dependence, cigarettes, with unspecified nicotine-induced disorders | CPT/HCPCS: 99214 ==